=== PATIENT | male | born 1960 | race African-American/Black ===

== ENCOUNTER 2016-07-30 04:41 | Emergency (ER) | payer SELFPAY ==
--- NOTE | 2016-07-30 05:34 | ED ---
I, Prosper,Chantelle, scribed for Alan Banegas MD on 07/30/16 at 0508 . Shortness of Breath - HPI Summary HPI Summary: This 56 y/o male presents to ED alongside EMS and law enforcement after being arrested [employer]. Chief complaint is ydt-ncon-did SOB. Pt states that his symptoms may be due to his anxiety. PMHx includes SC x2 and HTN. Pt is currently daily smoker. Plan of care involving CXR is discussed with pt, and he is agreeable at this moment. - History of Current Complaint Hx Obtained From: Patient, EMS Onset/Duration: Lasting Days - 2 days, Still Present Dyspnea At: Rest Aggrevating Factors: Nothing Alleviating Factors: Nothing Associated Signs & Symptoms: Negative - Allergy/Home Medications Allergies/Adverse Reactions: Allergies Allergy/AdvReac Type Severity Reaction Status Date / Time No Known Allergies Allergy Verified 07/30/16 04:52 PMH/Surg Hx/FS Hx/Imm Hx Cardiovascular History: Reports: Hx Hypertension, Hx Myocardial Infarction - Immunization History Date of Tetanus Vaccine: unk Date of Influenza Vaccine: none Infectious Disease History: No Infectious Disease History: Denies: Traveled Outside the [place] in Last 30 Days - Family History Known Family History: Positive: Diabetes Negative: Cardiac Disease, Hypertension - Social History Alcohol Use: None Hx Substance Use: No Substance Use Type: Reports: Heroin Smoking Status (MU): Current Every Day Smoker Review of Systems Negative: Fever Positive: Shortness Of Breath All Other Systems Reviewed And Are Negative: Yes Physical Exam Triage Information Reviewed: Yes Vital Signs On Initial Exam: Initial Vitals Temp Pulse Resp BP Pulse Ox 98.5 F 78 18 139/83 94 07/30/16 04:48 07/30/16 04:48 07/30/16 04:48 07/30/16 04:48 07/30/16 04:48 Vital Signs Reviewed: Yes Appearance: Positive: Well-Appearing, No Pain Distress Skin: Positive: Warm Head/Face: Positive: Normal Head/Face Inspection Eyes: Positive: VAUGHN ENT: Positive: Hearing grossly normal Neck: Positive: Supple Respiratory/Lung Sounds: Positive: Clear to Auscultation, Breath Sounds Present Cardiovascular: Positive: RRR Abdomen Description: Positive: Nontender, Soft Musculoskeletal: Positive: Strength/ROM Intact Neurological: Positive: Normal Gait Diagnostics - Vital Signs Vital Signs Temp Pulse Resp BP Pulse Ox 07/30/16 04:48 98.5 F 78 18 139/83 94 - Laboratory Lab Statement: Any lab studies that have been ordered have been reviewed, and results considered in the medical decision making process. - Radiology CXR Xray Interpretation: No Acute Changes Radiology Interpretation Completed By: ED Physician Re-Evaluation - Re-Evaluation First Eval Re-Evaluation Time: 05:35 Change: Improved Course/Dx - Diagnoses Provider Diagnoses: Shortness of breath Discharge - Discharge Plan Condition: Stable Disposition: LAW ENFORCEMENT/COURT Patient Education Materials: Dyspnea (ED) Referrals: Non Staff,Doctor [Primary Care Provider] - 2 Days [facility] REFERRAL [Outside] - 2 Days The documentation as recorded by the Prosper philip Soohyun accurately reflects the service I personally performed and the decisions made by me, Alan Baneags MD.
[2016-07-30 05:43] VITALS: BP 139/82
--- NOTE | 2016-07-30 07:41 | RAD ---
INDICATION: Short of breath COMPARISON: None TECHNIQUE: PA and lateral dual-energy views were obtained. FINDINGS: Bones/Soft Tissues: There are no acute bony findings. Cardiomediastinal: The correct silhouette is mildly prominent as are the central pulmonary vessels and interstitium compatible with mild vascular congestion. Lungs: There are no infiltrates. Pleura: No significant effusions. Small amount of fluid in the minor fissure.. Other: None IMPRESSION: INTERSTITIAL CONGESTION. SUGGEST FOLLOW-UP.
== END 2016-07-30 05:45 ==
LOC: ED 04:41
DX: R06.02 Shortness of breath (principal); F17.210 Nicotine dependence, cigarettes, uncomplicated
CPT/HCPCS: 71020; 99282

== ENCOUNTER 2018-05-15 11:49 | Inpatient (IN) | payer MEDICAID ==
--- NOTE | 2018-05-15 12:20 | ED ---
HPI Chest Pain - HPI Summary HPI Summary: A 58 y/o male presents to [facility] with a chief complaint of chest pain since the night of 05/14/18. He also c/o intermittent hiccups, since 22:00 05/14/18. He rates his pain as an 8/10 in severity. He reports taking ibuprofen, but it has not alleviated his pain. Deep breaths aggravate his pain. He describes his chest pain as burning and claims that it is mid-sternal. He reports some tingling in his arms. He also reports some nausea and shortness of breath but denies fever, chills, erythema (eyes), sore throat, cough, abdominal pain, vomiting, dysuria, hematuria, myalgia, edema, rash and dizziness. He has a Hx of cardiac disease and had two stents [place] in the city. He admits to smoking but denies drinking. He reports being thirsty and was given ice water. Vital signs while in room HR: 104 bpm, O2 Sat: 94, BP: 117/85. - History of Current Complaint Chief Complaint: EDChestPainROMI Time Seen by Provider: 05/15/18 12:01 Hx Obtained From: Patient Onset/Duration: Started Hours Ago, Still Present Timing: Constant, Lasting Hours Initial Severity: Severe Current Severity: Severe Pain Intensity: 8 Pain Scale Used: 0-10 Numeric Chest Pain Location: Mid Sternal Chest Pain Radiates: Yes Chest Pain Radiates To:: Arm - tinglinh in arms Character: Burning Aggravating Factor(s): Deep Breaths Alleviating Factor(s): Nothing Associated Signs and Symptoms: Positive: Shortness of Breath, Nausea. Negative : Dizziness, Fever, Chills, Cough, Abdominal Pain, Calf Pain/Swelling, Vomiting - Allergy/Home Medications Allergies/Adverse Reactions: Allergies Allergy/AdvReac Type Severity Reaction Status Date / Time No Known Allergies Allergy Verified 05/15/18 11:56 Home Medications: Home Medications NK [No Home Medications Reported] 05/15/18 [History Confirmed 05/15/18] PMH/Surg Hx/FS Hx/Imm Hx Cardiovascular History: Reports: Hx Hypertension, Hx Myocardial Infarction EENT History: Denies: Hx Deafness - Surgical History Surgery Procedure, Year, and Place: two stents - Immunization History Date of Tetanus Vaccine: unk Date of Influenza Vaccine: none Infectious Disease History: No Infectious Disease History: Denies: Traveled Outside the [place] in Last 30 Days - Family History Known Family History: Positive: Diabetes Negative: Cardiac Disease, Hypertension - Social History Alcohol Use: None Hx Substance Use: No Substance Use Type: Reports: Heroin Smoking Status (MU): Current Every Day Smoker Review of Systems Negative: Fever, Chills Negative: Erythema Negative: Sore Throat Positive: Chest Pain Positive: Shortness Of Breath. Negative: Cough Positive: Nausea, Other - positive: hiccups. Negative: Abdominal Pain, Vomiting Negative: dysuria, hematuria Negative: Myalgia, Edema Negative: Rash Neurological: Negative - dizziness All Other Systems Reviewed And Are Negative: Yes Physical Exam - Summary Physical Exam Summary: Constitutional: Well-developed, Well-nourished, Alert. (-) Distressed Skin: Warm, Dry HENT: Normocephalic; Atraumatic Eyes: Conjunctiva normal Neck: Musculoskeletal ROM normal neck. (-) JVD, (-) Stridor, (-) Tracheal deviation Cardio: Rhythm regular, rate normal, Heart sounds normal; Intact distal pulses; The pedal pulses are 2+ and symmetric. Radial pulses are 2+ and symmetric. (-) Murmur Pulmonary/Chest wall: No reproducible chest pain, Effort normal. (-) Respiratory distress, (-) Wheezes, (-) Rales Abd: Soft, (-) tenderness, (-) Distension, (-) Guarding, (-) Rebound Musculoskeletal: (-) Edema Lymph: (-) Cervical adenopathy Neuro: Alert, Oriented x3 Psych: Mood and affect Normal Triage Information Reviewed: Yes Vital Signs On Initial Exam: Initial Vitals Temp Pulse Resp BP Pulse Ox 98.1 F 108 16 138/77 97 05/15/18 11:53 05/15/18 11:53 05/15/18 11:53 05/15/18 11:53 05/15/18 11:53 Vital Signs Reviewed: Yes Diagnostics - Vital Signs Vital Signs Temp Pulse Resp BP Pulse Ox 05/15/18 12:04 110 20 118/75 96 05/15/18 12:01 18 05/15/18 11:53 98.1 F 108 16 138/77 97 - Laboratory Result Diagrams: 05/15/18 16:02 05/15/18 16:02 Lab Statement: Any lab studies that have been ordered have been reviewed, and results considered in the medical decision making process. - Radiology CXR Radiology Interpretation Completed By: Radiologist Summary of Radiographic Findings: NO ACTIVE CARDIOPULMONARY DISEASE IS NOTED. CARDIOMEGALY IS NOTED. ED physician has reviewed this imaging report. - EKG 12:04 Cardiac Rate: Tachycardia - 105 bpm EKG Rhythm: Sinus Tachycardia Summary of EKG Findings: EKG at 12:04 showed sinus tachycardia at 105 bpm with T -wave inversion V3-V5, no STEMI. Chest Pain Course/Dx - Course Course Of Treatment: A 58 y/o male presents to [facility] with a chief complaint of chest pain since the night of 05/14/18. He also c/o intermittent hiccups, since 22:00 05/14/18. He rates his pain as an 8/10 in severity. He reports taking ibuprofen, but it has not alleviated his pain. Deep breaths aggravate his pain. He describes his chest pain as burning and claims that it is mid-sternal. He reports some tingling in his arms. He also reports some nausea and shortness of breath but denies fever, chills, erythema (eyes), sore throat, cough, abdominal pain, vomiting, dysuria, hematuria, myalgia, edema, rash and dizziness. He has a Hx of cardiac disease and had two stents [place] the city. He admits to smoking but denies drinking. He reports being thirsty and was given ice water. The physical exam revealed no reproducible chest pain. EKG at 12:04 showed sinus tachycardia at 105 bpm with T-wave inversion V3-V5, no STEMI. CXR impression: NO ACTIVE CARDIOPULMONARY DISEASE IS NOTED. CARDIOMEGALY IS NOTED. ED physician has reviewed this imaging report. In the ED course the patient was given 324 mg Aspirin PO and 0.4 mg Nitroglycerin SL. Bloodwork and chemistries obtained. Troponin of 0.04 at 12:13. He was given NTG ointment and was feeling better. Case discussed with Dr. Warren, hospitalist, who accepted the patient for admission. The patient is agreeable with this plan. - Diagnoses Provider Diagnoses: Chest pain, unspecified, Elevated troponin - Provider Notifications Discussed Care Of Patient With: Santino Warren Time Discussed With Above Provider: 13:45 Instructed by Provider To: Admit As Inpatient Discharge - Sign-Out/Discharge Documenting (check all that apply): Patient Departure - admit Patient Received Moderate/Deep Sedation with Procedure: No - Discharge Plan Condition: Fair Disposition: ADMITTED TO [facility] - Billing Disposition and Condition Condition: FAIR Disposition: Admitted to [facility] - Attestation Statements Document Initiated by Scribe: Yes Documenting Scribe: Mauricio Dominguez Provider For Whom Scribe is Documenting (Include Credential): Ezra Khan MD Scribe Attestation: Mauricio Teague, scribed for Ezra Khan MD on 05/15/18 at 2229. Scribe Documentation Reviewed: Yes Provider Attestation: The documentation as recorded by the Mauricio philip accurately reflects the service I personally performed and the decisions made by Ezra tucker MD Status of Scribe Document: Viewed
[2018-05-15 12:27] LABS: ABS Basophils 0.2 10^3/ul (0-0.2); ABS Eosinophils 0 10^3/ul (0-0.6); ABS Lymphocytes 1.9 10^3/ul (1.0-4.8); ABS Monocytes 1.2 10^3/ul (0-0.8); ABS Neutrophils 8.9 10^3/ul (1.5-7.7); ABS Nucleated RBC 0 10^3/ul; Eosinophil % 0.4 %; Hematocrit 42 % (42-52); Hemoglobin 13.9 g/dl (14.0-18.0); Lymphocyte % 15.7 %; Mean Corpuscular HGB Conc 33 g/dl (31-36); Mean Corpuscular Hemoglobin 30 pg (27-31); Mean Corpuscular Volume 91 fL (80-94); Mean Platelet Volume 8.1 fL (7.4-10.4); Nucleated Red Blood Cells % 0; Platelet Count 264 10^3/ul (150-450); Red Blood Count 4.59 10^6/ul (4.00-5.40); Red Cell Distribution Width 15 % (10.5-15); White Blood Count 12.2 10^3/ul (3.5-10.8)
[2018-05-15] MEDS ORDERED: Aspirin 81 mg CHEW TAB* 81 MG TAB.CHEW PO ONE (12:54)
[2018-05-15] MEDS ORDERED: Nitroglycerin TAB 0.4 MG* 0.4 MG TAB SL ONE (12:54)
[2018-05-15 12:57] LABS: ALT 23 U/L (7-52); AST 26 U/L (13-39); Albumin 4.4 g/dL (3.2-5.2); Albumin/Globulin Ratio 1.4 (1-3); Alkaline Phosphatase 113 U/L (34-104); Anion Gap 9 mmol/L (2-11); BUN/Creatinine Ratio 12.4 (8-20); Blood Urea Nitrogen 25 mg/dL (6-24); CO2 Carbon Dioxide 24 mmol/L (22-32); Calcium 9.3 mg/dL (8.6-10.3); Chloride 110 mmol/L (101-111); EGFR African American 41.5 (>60); EGFR Non-African American 34.3 (>60); Globulin 3.1 g/dL (2-4); Glucose 108 mg/dL (70-100); Potassium 3.8 mmol/L (3.5-5.0); Sodium 143 mmol/L (135-145); Total Protein 7.5 g/dL (6.4-8.9)
[2018-05-15 13:01] LABS: Troponin I 0.04 ng/mL (<0.04)
[2018-05-15] MEDS ORDERED: Nitro 2% OINT* (Nitroglycerin) 1 INCH/PAK PAK ONE (13:31)
[2018-05-15] MEDS ORDERED: Nitro 2% OINT* (Nitroglycerin) 1 INCH/PAK PAK TOPICAL ONE (13:32)
[2018-05-15] MEDS ORDERED: Morphine NEONATE IV* 0.5 MG/ML 2 ML INJ STA (14:28)
[2018-05-15] MEDS ORDERED: NS 0.9% 500 ML* 500 ML IV ONE (14:28)
[2018-05-15] MEDS ORDERED: Morphine VIAL* 4 MG/ML VIAL (1 ml vial) IV ONE (14:33)
[2018-05-15] MEDS ORDERED: Clopidogrel TAB* 300 MG PO ONE (14:41)
[2018-05-15] MEDS ORDERED: Heparin DRIP 25,000 UNITS(*) 25,000 UNITS/500 ML BAG IV SCH (14:45)
[2018-05-15 14:59] LABS: Troponin I 0.04 ng/mL (<0.04)
[2018-05-15] MEDS ORDERED: NS 0.9% 1000 ML** 1,000 ML IV SCH (15:00)
[2018-05-15] MEDS: Heparin VIAL(*) 5000 UNITS/ML VIAL (FIVE THOUSAND) IV SCH ×2 (15:23→21:57)
[2018-05-15] MEDS: Nitroglycerin 0.2 MG/HR PATCH* (5 MG) TRANSDERM SCH (16:03)
--- NOTE | 2018-05-15 16:04 | ECHO ---
Patient: RAYNE DOWNING [facility] Rec#: [id number] : 1960 Date: 05/15/2018 Age: 58y Height: 170 cm / 66.9 in Weight: 109 kg / 240.2 lbs Sex: M BSA: 2.18 Room#: [facility] Admit Date#: 05/15/2018 Type: Inpatient Referring: Santino Warren Reading: Brock Davies MD Advertising Agent: Chayo Ferreira RDCS Transthoracic Echocardiogram Indication: Myocardial Infarction BP: 115/66 HR: 85 Rhythm: NSR Findings History: CAD, s/p PCI, smoker. Technical Comments: The study quality is fair. Completed at 1540. Left Ventricle: The left ventricular chamber size is normal. Mild to moderate concentric left ventricular hypertrophy is observed. There is global hypokinesis of the left ventricle with minor regional variation.The lateral and posterlateral segments are best preserved. The inferior and mid septal segments are most severely hypokinetic. There is moderately decreased left ventricular systolic function. The estimated ejection fraction is 35-40%. Abnormal left ventricular diastolic function is observed. The left ventricular diastolic filling pattern is consistent with pseudonormalization. The basal anterolateral, basal inferior, basal inferoseptal, mid anteroseptal, mid inferolateral, mid inferior, and apical inferior wall segments are hypokinetic (score 2). The basal inferolateral, and mid inferoseptal wall segments are akinetic (score 3). Overall wallmotion score index is 1.69 Left Atrium: The left atrium is mildly dilated. Right Ventricle: The right ventricle is mildly dilated. The right ventricular global systolic function is moderately reduced. Right Atrium: The right atrial cavity size is normal. Aortic Valve: The aortic valve is trileaflet. The aortic valve leaflets are mildly thickened. There is no evidence of aortic regurgitation. There is no evidence of aortic stenosis. Mitral Valve: There is mitral annular calcification. The mitral valve leaflets are mildly thickened. There is a trace of mitral regurgitation. There is no evidence of mitral stenosis. Tricuspid Valve: The tricuspid valve leaflets are normal. There is trace tricuspid regurgitation. Unable to estimate the right ventricular systolic pressure. There is no tricuspid stenosis. Pulmonic Valve: The pulmonic valve appears normal. There is a trace pulmonic regurgitation. There is no pulmonic stenosis. Pericardium: There is no significant pericardial effusion. A pericardial fat pad is visualized. Aorta: There is no dilatation of the ascending aorta. There is no dilatation of the aortic arch. The aortic root is normal in size. Pulmonary Artery: The main pulmonary artery is not well visualized. Venous: The inferior vena cava appears normal in size. There is a greater than 50% respiratory change in the inferior vena cava dimension. Summary: There was not any prior study for comparison. Conclusions There is global hypokinesis of the left ventricle with minor regional variation. The lateral and posterlateral segments are best preserved. The inferior and mid septal segments are most severely hypokinetic. There is moderately decreased left ventricular systolic function. The estimated ejection fraction is 35-40%, closer to 35%. The left ventricular diastolic filling pattern is consistent with pseudonormalization. The left atrium is mildly dilated. The right ventricle is mildly dilated. The right ventricular global systolic function is moderately reduced. The aortic valve leaflets are mildly thickened. There is a trace of mitral regurgitation. There is trace tricuspid regurgitation. Measurements Name Value Normal Range RVIDd (AP) 2D 3.3 cm (0.9 - 2.6) RVDdMajor (2D) 4.5 cm (2.2 - 4.4) RAd ISD 4CH 4.4 cm (3.4 - 4.9) RA (A4C)W 4.4 cm (2.9 - 4.6) IVSd (2D) 1.3 cm (0.6 - 1) LVPWd (2D) 1.3 cm (0.6 - 1) LVIDd (2D) 5 cm (3.6 - 5.4) LVIDs (2D) 4.6 cm - LV FS (2D) 7 % (25 - 45) Aortic Annulus 1.9 cm (1.4 - 2.6) Ao root diameter (2D) 3.1 cm (2.1 - 3.5) Ascending Ao 3 cm (2.1 - 3.4) Aortic arch 2.1 cm (1.8 - 3.4) LA dimension (AP) 2D 4.1 cm (2.3 - 3.8) LAd ISD 4CH 4.9 cm (2.9 - 5.3) LA ISD 4CH W 4.7 cm (2.5 - 4.5) Name Value Normal Range LA ESV BP (A/L) index 33 ml/m2 - Name Value Normal Range MV E-wave Vmax 0.6 m/sec - MV deceleration time 317 msec - MV A-wave Vmax 1 m/sec - MV E:A ratio 0.6 ratio - LV septal e' Vmax 0.04 m/sec - LV lateral e' Vmax 0.05 m/sec - LV E:e' septal ratio 15 ratio - LV E:e' lateral ratio 12 ratio - Name Value Normal Range AV Vmax 1.6 m/sec - AV VTI 23 cm - AV peak gradient 10 mmHg - AV mean gradient 5 mmHg - LVOT Vmax 1 m/sec - LVOT VTI 15 cm - LVOT peak gradient 4 mmHg - LVOT mean gradient 2 mmHg - CRISTOBAL Vmax 1.1 m/sec - Name Value Normal Range IVC diameter 1.9 cm - Name Value Normal Range PV Vmax 0.8 m/sec - PV peak gradient 3 mmHg - Wallmotion BAS Normal BA Normal BAL Hypokinetic JERRY Akinetic BI Hypokinetic BIS Hypokinetic MAS Hypokinetic MA Normal MAL Normal MIL Hypokinetic OK Hypokinetic MIS Akinetic Normal AA Normal AL Normal AI Hypokinetic APEX Normal
[2018-05-15 16:09] LABS: Creatine Kinase 608 U/L (10-223)
[2018-05-15 16:12] LABS: ABS Basophils 0.1 10^3/ul (0-0.2); ABS Eosinophils 0.1 10^3/ul (0-0.6); ABS Lymphocytes 2.2 10^3/ul (1.0-4.8); ABS Monocytes 1.1 10^3/ul (0-0.8); ABS Neutrophils 9.6 10^3/ul (1.5-7.7); ABS Nucleated RBC 0 10^3/ul; Eosinophil % 0.6 %; Hematocrit 41 % (42-52); Hemoglobin 13.4 g/dl (14.0-18.0); Lymphocyte % 16.7 %; Mean Corpuscular HGB Conc 33 g/dl (31-36); Mean Corpuscular Hemoglobin 30 pg (27-31); Mean Corpuscular Volume 92 fL (80-94); Mean Platelet Volume 8.2 fL (7.4-10.4); Nucleated Red Blood Cells % 0.1; Platelet Count 255 10^3/ul (150-450); Red Blood Count 4.43 10^6/ul (4.00-5.40); Red Cell Distribution Width 15 % (10.5-15)
[2018-05-15 16:14] LABS: CKMB ng/mL 8.5 ng/mL (0.6-6.3)
[2018-05-15 16:24] LABS: EGFR African American 41.3 (>60); EGFR Non-African American 34.1 (>60)
--- NOTE | 2018-05-15 16:28 | HP ---
ADMITTING HISTORY AND PHYSICAL: DATE OF ADMISSION: 05/15/18 CHIEF COMPLAINT: Chest pain. HISTORY OF PRESENT ILLNESS: The patient is a 58-year-old gentleman who presents to [facility] for chest pain. The patient mentioned that he has been having some chest pain since the night prior and also had been complaining of some intermittent hiccups since 10 o'clock last night. He rated the pain as 8/10 in severity on presentation in the ED and reported that he was taking ibuprofen and it has not relieved this pain. He mentions to the ED physician that deep breaths aggravate his pain, but on my review of systems with him, he clearly denied any aggravating or alleviating symptoms. He described his chest pain as burning in quality and that it was midsternal and mentioned that some of the pain may have radiated in the upper arms. He also reported some nausea and some shortness of breath along with his chest pain, but denied any fevers, chills. PAST MEDICAL AND SURGICAL HISTORY: CAD, status post NC, hypertension, status post ventral hernia repair. 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 ibuprofen he took for chest pain that he presented with today. ALLERGIES: NKDA. FAMILY HISTORY: He mentions that this is unremarkable and "nothing runs in his family." SOCIAL HISTORY: He mentions that he is a one-half pack per day smoker for the last 3 years, but had been smoking about 1.5 to 2 packs per day for the previous 40 years prior to decreasing it to current smoking history. He denies any history of IV drug use or alcohol abuse. REVIEW OF SYSTEMS: As described above. Denied any fevers, chills, vomiting, abdominal pain, diarrhea, constipation, pain and/or increased urinary frequency on urination, myalgias, arthralgias, throat pain, or new skin lesions. The rest of the 14-point review of systems other than chest pain, shortness of breath, and eructation are otherwise normal. PHYSICAL EXAMINATION GENERAL APPEARANCE: The patient is awake. The patient is clearly uncomfortable , lying down in his gurney. VITAL SIGNS: Show the most recent vital signs of records with blood pressure of 115/66, 107 per minute heart rate, 16 per minute respiratory rate, saturating at 94% on room air. HEENT: Normocephalic, atraumatic. PERRLA. Extraocular muscles intact. Negative for icterus. Moist oral mucosa. Negative throat erythema. NECK: Soft, supple with no cervical lymphadenopathy, no JVD. CHEST: Clear to auscultation bilaterally. Good air entry. No wheezes, rales, or rhonchi. There are no tender areas of his chest on palpation. HEART: S1, S2 within normal limits. Slightly tachycardic. No murmurs, rubs, or gallops. ABDOMEN: Soft, nondistended, nontender. Normoactive bowel sounds x4 quadrants. EXTREMITIES: No cyanosis, clubbing, or edema. PSYCHIATRIC: No active psychosis, depression, suicidal or homicidal ideation. SKIN: Warm to touch. DIAGNOSTIC STUDIES/LAB DATA: Most recent and pertinent laboratories drawn reveal CBC with a WBC of 12.2, H and H of 13.9 and 42, platelets of 264. Sodium and potassium of 143 and 3.8, BUN and creatinine of 25/2.1, GFR of 41.5. Troponin is 0.04. LFTs are otherwise unremarkable except for mildly elevated alkaline phosphatase at 113. Lactic acid of 1.4. EKG: The initial EKG did not show any ST segment changes; however, a repeat EKG shows a minor, probably around 0.05 mm depression in the inferior leads with no reciprocal changes in the septal leads. However, it does not meet a 1 mm criteria just yet. ASSESSMENT AND PLAN: The patient is a 58-year-old gentleman with a history of noncompliance; hypertension; coronary artery disease, status post myocardial infarction with stents; noncompliant with medications including aspirin, who presents today with chest pain likely secondary to non-ST- elevation myocardial infarction. 1. Chest pain, likely secondary to [id number] elevation myocardial infarction with minimal elevation of troponins; however, he does have a high JOSE score and has been off of his Plavix and supposedly with stents and therefore the patient could have an in-stent thrombosis or a possible new site of coronary artery disease. At this point, his JOSE score is 4 and still was currently in chest pain a few minutes back and had been given a dose of morphine. I placed him on a nitro patch, heparin drip. I have loaded him up with Plavix in addition to aspirin and we will place him on telemetry and continue to trend troponins as ordered. MB fraction has also been ordered and is awaiting. I have also had a brief discussion with Dr. Davies, who agrees with the above assessment and plan. We will also obtain 2D echo. We will defer with any further suggestions from Dr. Davies. 2. History of coronary artery disease, status post myocardial infarction. I will place him on aspirin and Plavix as discussed above. We will hold off on placing him on any beta-catina at this time given his mild hypotension that is otherwise fluid responsive. We will await results of 2D echo. 3. Acute kidney injury, likely secondary to acute tubular necrosis due to possible [id number] myocardial infarction. We will order urine lytes to calculate for FENa and FEUrea and we will order renal ultrasound to rule out causes postrenal renal failure. 4. Elevated troponins. Please see above discussion. 5. Elevated white count/leukocytosis, likely due to stress/chest pain and likely reactive. 6. DVT prophylaxis: The patient will be placed on full-dose anticoagulation and heparin drip. 7. Disposition: As above. [id number]/[facility] #: [id number] [facility]
[2018-05-15] MEDS: Carvedilol TAB* 3.125 MG PO SCH (17:57)
[2018-05-15] MEDS ORDERED: Atorvastatin* 40 MG TAB PO SCH (18:00)
[2018-05-15 19:14] LABS: Creatine Kinase 532 U/L (10-223)
[2018-05-15 19:18] LABS: CKMB ng/mL 6.7 ng/mL (0.6-6.3)
[2018-05-15 19:23] LABS: Troponin I 0.04 ng/mL (<0.04)
[2018-05-15] MEDS: Nitro Patch/OINT Remove PATCH OFF SCH (20:15)
[2018-05-15] MEDS: Morphine VIAL* 4 MG/ML VIAL (1 ml vial) IV PRN (22:20)
--- NOTE | 2018-05-15 22:24 | CONS ---
CC: Brock Davies MD CARDIOLOGY CONSULTATION REPORT: DATE OF CONSULT: 05/15/18 CONSULTING PHYSICIAN: Dr. Rakesh Warren. REASON FOR EVALUATION: Chest pain, coronary artery disease. HISTORY OF PRESENT ILLNESS: Mr. Khan is a 58-year-old gentleman with a history of coronary artery disease, presented with chest pain. He said that starting yesterday he developed chest pain that was somewhat of a pressure. He felt like something was stuck in his throat. He said it started about 10 a.m. and he said also it was coming by hiccups and that it was worse with each hiccup. He said that today it was persisting, and because of the symptoms, he came to the emergency room. In the emergency room, he was noted to have an abnormal EKG and abnormal troponin, and he was admitted for observation. He did receive some nitroglycerin earlier today with improvement; however, he said that he had a sandwich about an hour ago and had worsening of his symptoms for a while with a feeling like the sandwich was stuck in his throat. He has a history of 2 MIs in the past, most recent of which was in 2014. He said the first UT was treated at the [facility] and he received a stent. The second UT was treated at [facility] "near the [facility]," but he could not identify the name of the hospital despite being given a list of hospitals in [place]. He said he received the stent at that time. He was also told to have a low ejection fraction, but apparently did not follow up with care. He was in retirement from 2017 to 2018. He states he has had back pain and has been taking Motrin 800 mg 3 times a day for his pain. 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 He said the back hurts after he has walked for a while, but he did not give me a sense of how much exercise he does. PAST MEDICAL HISTORY: Includes UT x2, the most recent in 2014; stenting x2; hypertension; ventral hernia repair. MEDICATIONS: He is not sure of his medications, but states he thinks he ran out and took lisinopril in the past up until a day ago. He does take ibuprofen 800 mg 3 times a day. He does not take aspirin. ALLERGIES: He has no known allergies. FAMILY HISTORY: He said his father from alcohol abuse. His mother had coronary artery bypass grafting at 70, is now 79. He is single, has no children. He has a brother who has cancer. SOCIAL HISTORY: He denies alcohol use. He is single, never , no children. There is a history of tobacco use, half a pack per day. He smoked for 40 years, but had been smoking as much as 2 packs a day until he cut back to half a pack a day in last few years. He reports obesity and has had an increase in his weight of approximately 50 pounds over the last year from 200 to 250. He denies sleep apnea. He is not aware of renal insufficiency. REVIEW OF SYSTEMS: Review of systems x10 was negative except as above. PHYSICAL EXAM: He is a well-developed, obese gentleman, in no apparent distress. Blood pressure 107/78, heart rate of 110, temperature 99.1, O2 sats 94 % on room air. His eyes were with some degree of exophthalmos. Extraocular muscles are intact. Sclerae anicteric. Atraumatic, normocephalic. No significant JVD. Carotids 2+ without bruits. Cardiac Exam: S1 and S2 with no clear murmurs, gallops, or rubs. Chest was clear. Abdominal Exam: Bowel sounds present, distended, nontender, obese, difficult to exam for hepatosplenomegaly. Femoral pulses intact without bruits. Distal pulses intact. No edema. Motor strength 5/5 bilaterally. Deep tendon reflexes 2/4. Alert and oriented x3. DIAGNOSTIC STUDIES/LAB DATA: EKG revealed sinus rhythm, sinus tach of 105 with Q waves inferiorly and lateral ST-T changes, consider ischemia. Repeat EKG is pending. Chest x-ray by report revealed cardiomegaly, no acute changes. His echocardiogram from today revealed [id number] LVH, global hypokinesis of the LV with minor regional variation, lateral and posterolateral segments are best preserved, inferior and mid septal segments of severely hypokinetic, moderately decreased LV function, EF of 35% to 40%, abnormal diastolic pattern consistent with grade 2 diastolic dysfunction. The basal inferolateral, mid inferoseptal segments are akinetic. Left atrium is mildly dilated. RV systolic pressure is moderately reduced. Aortic leaflets are thickened trace and mild trace TR. IMPRESSION: My impression is that Mr. Khan has a history of coronary artery disease, appears to have ischemic cardiomyopathy and now has chest pain which is somewhat atypical, associated with hiccups. He also has trouble swallowing. He has renal insufficiency which may be chronic due to hypertensive kidney disease or exacerbated by his heavy Motrin, nonsteroidal antiinflammatory use. His EKG and echo do support the diagnosis of ischemic cardiomyopathy and he may have an exacerbation. His troponins are mildly elevated, but this in the setting of renal insufficiency and may be demand ischemia type 2 rather than acute infarct. PLAN/RECOMMENDATIONS: For the time being, I recommended the followin. I suggested adding nitrates, which seem to have helped. 2. I would add low-dose beta-catina for his LV dysfunction and angina, Coreg 3.125 mg b.i.d. 3. I would continue dual antiplatelet therapy as you are doing. 4. I would add Lipitor 40 mg a day. 5. I strongly advised him to discontinue tobacco use, which he declined. 6. I would consider a GI workup for his swallowing difficulties perhaps a swallowing study. 7. Given his unexplained weight gain and swallowing difficulties, I would consider possibility of occult structural lesion which may responsible for his chest symptoms and swallowing difficulties. 8. I would repeat his EKG. 9. I told him the importance of compliance for his heart condition, which could be life threatening and the need for compliance with his medications and followup. 10. I would consider evaluation for ischemia with a nuclear stress test or cath if he has progressive symptoms and EKG changes support diagnosis of acute coronary syndrome. Tobacco discontinuation and weight reduction are advised. He was advised to refrain from nonsteroidal antiinflammatory use which could increase his risk for cardiovascular morbidity and mortality, hypertension, and renal insufficiency. We will try to locate his records from [facility] and from an as yet unnamed hospital in [place]; I have reviewed with him the names of several hospitals and he is not sure he is going to try to figure out the name. [id number]/[facility] #: [id number] MEAGAN
[2018-05-16 01:37] LABS: Troponin I 0.03 ng/mL (<0.04)
[2018-05-16 01:39] LABS: CKMB ng/mL 6.6 ng/mL (0.6-6.3)
[2018-05-16] MEDS: Morphine VIAL* 4 MG/ML VIAL (1 ml vial) IV PRN ×2 (05:02→20:00)
[2018-05-16 05:08] LABS: ABS Basophils 0.1 10^3/ul (0-0.2); ABS Eosinophils 0.1 10^3/ul (0-0.6); ABS Lymphocytes 3.1 10^3/ul (1.0-4.8); ABS Monocytes 1.3 10^3/ul (0-0.8); ABS Neutrophils 7.4 10^3/ul (1.5-7.7); ABS Nucleated RBC 0 10^3/ul; Hematocrit 38 % (42-52); Hemoglobin 12.4 g/dl (14.0-18.0); Lymphocyte % 25.8 %; Mean Corpuscular HGB Conc 33 g/dl (31-36); Mean Corpuscular Hemoglobin 30 pg (27-31); Mean Corpuscular Volume 91 fL (80-94); Mean Platelet Volume 7.9 fL (7.4-10.4); Nucleated Red Blood Cells % 0; Platelet Count 235 10^3/ul (150-450); Red Blood Count 4.13 10^6/ul (4.00-5.40); Red Cell Distribution Width 15 % (10.5-15); White Blood Count 12.1 10^3/ul (3.5-10.8)
[2018-05-16 05:25] LABS: Albumin 3.8 g/dL (3.2-5.2); Albumin/Globulin Ratio 1.4 (1-3); BUN/Creatinine Ratio 16.9 (8-20); Calcium 8.7 mg/dL (8.6-10.3); EGFR African American 65.1 (>60); EGFR Non-African American 53.8 (>60); Globulin 2.7 g/dL (2-4); HDL Cholesterol 32.8 mg/dL; Magnesium 1.9 mg/dL (1.9-2.7); Phosphorus 2.1 mg/dL (2.5-5.0); Potassium 3.7 mmol/L (3.5-5.0); Total Bilirubin 0.6 mg/dL (0.2-1.0); Total Protein 6.5 g/dL (6.4-8.9)
[2018-05-16 06:02] LABS: TSH (Thyroid Stimulating Horm) 0.5 mcIU/mL (0.34-5.60)
[2018-05-16] MEDS: Nitroglycerin 0.2 MG/HR PATCH* (5 MG) TRANSDERM SCH (08:02)
[2018-05-16] MEDS: Carvedilol TAB* 3.125 MG PO SCH (08:03)
[2018-05-16] MEDS: Aspirin 81 mg CHEW TAB* 81 MG TAB.CHEW PO SCH (08:03)
[2018-05-16] MEDS ORDERED: Clopidogrel TAB* 75 MG PO SCH (09:00)
[2018-05-16] MEDS: Heparin VIAL(*) 5000 UNITS/ML VIAL (FIVE THOUSAND) IV SCH (11:16)
[2018-05-16] MEDS ORDERED: Al Hydrox/Mg Hydrox/Simet LIQ* 30 ML UDC PO PRN (14:17)
--- NOTE | 2018-05-16 14:23 | PN ---
Subjective Date of Service: 05/16/18 Interval History: Patient continues to have substernal chest pain. This has been present for hours. Has known CAD, stents in past. He feels he was told that after 1 year, no medications for CAD were needed. Pain in chest worse w/ hiccoughs, worse when swallowing food. Denies h/o GERD. Family History: Unchanged from Admission Social History: Unchanged from Admission Past Medical History: Unchanged from Admission Objective Active Medications: Al Hydrox/Mg Hydrox/Simethicone (Maalox Plus*) 30 ml PO Q6H PRN PRN Reason: HEARTBURN Aspirin (Aspirin 81 Mg Chew Tab*) 81 mg PO DAILY [facility] Last Admin: 05/16/18 08:03 Dose: 81 mg Atorvastatin Calcium (Lipitor*) 10 mg PO 1700 [facility] Carvedilol (Coreg Tab*) 6.25 mg PO BID [facility] Morphine Sulfate (Morphine Vial*) 1 mg IV Q6H PRN PRN Reason: PAIN Last Admin: 05/16/18 05:02 Dose: 1 mg Nitroglycerin (Nitroglycerin 5 Mg Patch*) 1 patch TRANSDERM DAILY@0900 [facility] Last Admin: 05/16/18 08:02 Dose: 1 patch Pantoprazole Sodium (Protonix Tab*) 40 mg PO DAILY [facility] Pharmacy Profile Note (Nitro Patch/Oint Remove*) 1 note PATCH OFF 2100 [facility] Last Admin: 05/15/18 20:15 Dose: 1 patch Vital Signs - 8 hr 05/16/18 05/16/18 05/16/18 07:42 07:57 08:00 Temperature 37.1 C Pulse Rate 84 Respiratory 16 17 16 Rate Blood Pressure 119/61 (mmHg) O2 Sat by Pulse 92 Oximetry 05/16/18 12:30 Temperature 37.1 C Pulse Rate 86 Respiratory 14 Rate Blood Pressure 123/54 (mmHg) O2 Sat by Pulse 96 Oximetry Oxygen Devices in Use Now: None Appearance: alert, no distress Eyes: No Scleral Icterus Ears/Nose/Mouth/Throat: Clear Oropharnyx Neck: No Thyroid Enlargement, Masses Respiratory: Symmetrical Chest Expansion and Respiratory Effort, Clear to Auscultation Cardiovascular: NL Sounds; No Murmurs; No JVD, RRR Abdominal: NL Sounds; No Tenderness; No Distention Lymphatic: No Cervical Adenopathy Neurological: Alert and Oriented x 3 Lines/Tubes/Other Access: Clean, Dry and Intact Peripheral IV Result Diagrams: 05/16/18 04:51 05/16/18 05:00 Additional Lab and Data: Laboratory Tests 05/15/18 05/16/18 05/16/18 18:45 00:55 05:00 Hemoglobin A1c Phosphorus 2.1 L Total Creatine Kinase 532 H 507 H Troponin I 0.04 H* 0.03 Cholesterol 137 TSH 0.50 05/16/18 05:00 Hemoglobin A1c 5.9 H Phosphorus Total Creatine Kinase Troponin I Cholesterol TSH Diagnostic Imaging: esophagram: suggestion of distal esophagitis, no achalasia, no obstruction Assess/Plan/Problems-Billing Assessment: 58 yo man with know CAD, h/o stent to circumflex, not currently on medications, admitted w/ chest pain. - Patient Problems (1) Esophagitis Current Visit: Yes Status: Acute Priority: High Code(s): K20.9 - ESOPHAGITIS, UNSPECIFIED SNOMED Code(s): 14510666 Comment: -suspect chest pain is esophageal in nature -appreciate findings on barium swallow -will start mylanta and PO protonix -Will need outpatient EGD (2) Angina concurrent with and due to arteriosclerosis of coronary artery Current Visit: Yes Status: Acute Priority: High Code(s): I25.119 - ATHSCL HEART DISEASE OF [place] COR ART W UNSP ANG PCTRS SNOMED Code(s): 91153344746561833 Comment: -Troponins have been minimally elevated, no NSTEMI/ACS appears present -Has been restarted on ASA, statin, beta-catina, nitrates to prevent angina in future -stress test planned Friday, could be completed as outpatient. (3) DVT prophylaxis Current Visit: Yes Status: Acute Priority: Low Code(s): [id number] - SNOMED Code(s): 208766592 Comment: -heparin drip stopped -Will start SCDs Status and Disposition: inpatient, possible discharge tomorrow
[2018-05-16] MEDS: Pantoprazole TAB * 40 MG TAB PO SCH (16:34)
[2018-05-16] MEDS ORDERED: Atorvastatin* 10 MG TAB PO SCH (17:00)
[2018-05-16] MEDS: Carvedilol TAB* 6.25 MG PO SCH (21:17)
[2018-05-16] MEDS: Nitro Patch/OINT Remove PATCH OFF SCH (21:17)
[2018-05-17 07:35] LABS: Albumin 3.6 g/dL (3.2-5.2); Albumin/Globulin Ratio 1.3 (1-3); BUN/Creatinine Ratio 13.8 (8-20); Calcium 8.7 mg/dL (8.6-10.3); EGFR African American 73.1 (>60); EGFR Non-African American 60.4 (>60); Globulin 2.7 g/dL (2-4); Potassium 3.6 mmol/L (3.5-5.0); Total Bilirubin 0.6 mg/dL (0.2-1.0); Total Protein 6.3 g/dL (6.4-8.9)
[2018-05-17 07:37] LABS: Troponin I 0.02 ng/mL (<0.04)
[2018-05-17] MEDS: Aspirin 81 mg CHEW TAB* 81 MG TAB.CHEW PO SCH (08:51)
[2018-05-17] MEDS: Pantoprazole TAB * 40 MG TAB PO SCH (08:51)
[2018-05-17] MEDS: Nitroglycerin 0.2 MG/HR PATCH* (5 MG) TRANSDERM SCH (08:51)
[2018-05-17] MEDS: Carvedilol TAB* 6.25 MG PO SCH (08:51)
[2018-05-17 12:01] VITALS: BP 124/55
--- NOTE | 2018-05-17 23:24 | DS ---
CC: Dr. Schmitz, [facility]; Dr. Davies * DISCHARGE SUMMARY: DATE OF ADMISSION: 05/15/18 DATE OF DISCHARGE: 05/17/18 PRIMARY DIAGNOSIS: Chest pain due to esophagitis. SECONDARY DIAGNOSES: 1. Coronary artery disease, history of stenting. 2. Tobacco abuse. 3. Obesity. 4. Hypertension. MEDICATIONS ON DISCHARGE: 1. Protonix 40 mg p.o. q. day. 2. Mylanta 30 mL p.o. q.6h. p.r.n. dyspepsia. 3. Aspirin 81 mg p.o. q. day. 4. Atorvastatin 10 mg p.o. q.h.s. 5. Carvedilol 6.25 mg p.o. b.i.d. 6. Nitroglycerin patch 0.2 mcg per hour topically in the a.m., off in the p.m. HOSPITAL COURSE: The patient was admitted to the emergency department with substernal chest pain that had begun the night prior to admission and was unrelenting, radiating to both arms, associated with some nausea. There were no ST elevations on the EKG, but initial troponin was 0.04, so there was a suspicion of non-ST elevation MN. The patient was treated appropriately with IV heparin, aspirin, beta blockade, cardiology consultation. The pain, however on further questioning the next day, was continuous and worsened by swallowing water or food and associated with a feeling of food catching in the throat. The troponins were repeated and came down to 0.03 and 0.02. EKG showed some varying degrees of T-wave inversion throughout, but no Q-waves, no ST elevations. Dr. Davies, Cardiology consulted on the day of admission and his suspicion for a fatal cardiac disease was low. He suspected esophageal issues mainly. He has documented history of MN x2 and stent on 2 occasions, most recently at [facility] in [facility]. The patient had stopped all his medications in the interim and so he was re-started on aspirin, nitrates, beta blockers, anticholesterol agents, and advised to quit smoking. Dr. Davies was raising outpatient stress test for the patient on the first day or two after discharge. The patient also had an esophagogram during the hospital stay. This did show some irregularities at the mid to distal thoracic esophagus consistent with esophagitis. The patient was started on Protonix and Mylanta, but did not have much relief from that. The patient was medically stable for discharge. Vital signs were stable and his chest pain had gone on for more than 48 hours without remitting and without ordering troponins. The patient was advised to be discharged and have follow up with the [facility] to establish primary care. The patient also should see Cardiology for stress test the next 48 hours. He was also advised to have a gastroenterology consult arranged to further investigate the esophagitis. This could be arranged through the outpatient clinic. ACTIVITY: Should be as tolerated. DIET: Should be low salt, low fat. TIME SPENT: I spent 40 minutes coordinating care with specialists and discharging this patient today. [id number]/[facility] #: [id number] MEAGAN
[2018-05-19 16:33] LABS: Creatine Kinase 309 U/L (39 - 308)
== END 2018-05-17 14:25 | disposition home or self-care (01) | DRG 243 ==
LOC: ED 11:49 → MEDTELE 14:40
PROVIDERS: ADMIT Student in an Organized Health Care Education/Training Program; ATTEND Internal Medicine
DX: K20.9 Esophagitis, unspecified (principal); N17.0 Acute kidney failure with tubular necrosis; Z68.41 Body mass index [BMI] 40.0-44.9, adult; R07.89 Other chest pain; I25.10 Atherosclerotic heart disease of native coronary artery without angina pectoris; I11.9 Hypertensive heart disease without heart failure; E66.9 Obesity, unspecified; F17.210 Nicotine dependence, cigarettes, uncomplicated; R74.8 Abnormal levels of other serum enzymes; I25.5 Ischemic cardiomyopathy; Z81.1 Family history of alcohol abuse and dependence; I25.2 Old myocardial infarction; Z95.5 Presence of coronary angioplasty implant and graft; Z82.49 Family history of ischemic heart disease and other diseases of the circulatory system; Z80.9 Family history of malignant neoplasm, unspecified
CPT/HCPCS: 36415; 71045; 74220; 80053; 80061; 82550; 82553; 82565; 83036; 83605; 83735; 84100; 84443; 84484; 84520; 85025; 85660; 85730; 93005; 93306; 94762; 96374; 96375; 99284; A9270-GY; J1644; J2270

== ENCOUNTER → 2018-08-14 08:37 | Day surgery (SDC) | payer OTHER ==
[2018-08-14 09:35] VITALS: BP 138/70
[2018-08-14 10:14] LABS: Hematocrit 38 % (42-52); Hemoglobin 12.5 g/dL (14.0-18.0); Mean Corpuscular HGB Conc 33 g/dL (31-36); Mean Corpuscular Hemoglobin 30 pg (27-31); Mean Corpuscular Volume 91 fL (80-94); Mean Platelet Volume 9.1 fL (7.4-10.4); Platelet Count 194 10^3/uL (150-450); Red Blood Count 4.19 10^6 /uL (4.18-5.48); Red Cell Distribution Width 14 % (10-15); White Blood Count 11.9 10^3/uL (3.5-10.8)
--- NOTE | 2018-08-14 10:14 | PN ---
Subjective Date of Service: 08/14/18 - c/o sinus congestion, low grade fever, cough here for elective LHC Interval History: Patient presents for elective LHC to r/o hybernating myocardium. Apparently since Friday he has been suffering from sinus congestion, funny nose, cough with white sputum and SOB. He has not taken temperature at home but denies rigors. No c/o chest pain, dizziness, syncope or palpitations. dental laboratory manager staff states temp 100.4 and room air SP02 87-90%. Patient lying in bed upon entering room Objective Vital Signs: Temp Pulse Resp BP Pulse Ox 100.4 F 96 16 138/70 88 08/14/18 09:30 08/14/18 09:00 08/14/18 09:03 08/14/18 08:57 08/14/18 09:00 Oxygen Devices in Use Now: Nasal Cannula Appearance: well nourished, in NAD A+O x3 cooperative with exam Ears/Nose/Mouth/Throat: NL Teeth, Lips, Gums, Mucous Membranes Moist Neck: NL Appearance and Movements; NL JVP, Trachea Midline, No Thyroid Enlargement, Masses Respiratory: - - + inspiratory rales and wheezes noted in bilateral bases R>L, respirations are non labored. Harsh cough noted Cardiovascular: NL Sounds; No Murmurs; No JVD, No Edema Extremities: No Edema Skin: No Rash or Ulcers Neurological: Alert and Oriented x 3 Lines/Tubes/Other Access: Clean, Dry and Intact Peripheral IV Laboratory Results: CBC pending Diagnostic Imaging: CXR pending EKG Data: pending Assessment/Plan #1 5 day h/o Sinus congestion with cough and SOB. Temp 100.4, SP02 on RA 87-90% patient has a h/o tobacco abuse. Respirations are non labored on exam. He is lying in bed in supine position with HOB at 30 degrees and is comforable. + harsh cough with inspiratory rales in bilateral bases. Will re schedule elective LHC. Update CXR, CBC and EKG. 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 He denies chest pain, dizziness or syncope. #2 h/o CAD with fixed defect. Denies chest pain. Will need to reschedule elective LHC once URI treated given low grade fever. #3 h/o SHF; he c/o sob and has rales in bases likely due to above #1. CXR to be updated. Will continue medications. #4 h/o CKD. Creat 1.3 08/06/2018 reflective of baseline. #5 Disposition pending course. D/W Dr. Ellison who agrees to re schedule elective LHC. Obtaining CXR and CBC. disposition is pending course. Attending: Karly Ellison
[2018-08-14 12:23] LABS: ABS Basophils 0.1 10^3/ul (0-0.2); ABS Eosinophils 0.2 10^3/ul (0-0.6); ABS Monocytes 1.7 10^3/ul (0-0.8); Eosinophil % 1.8 %; Lymphocyte % 16.6 %
== END | disposition home or self-care (01) ==
LOC: CHICATH 08:37
PROVIDERS: ATTEND Internal Medicine Cardiovascular Disease
DX: I25.10 Atherosclerotic heart disease of native coronary artery without angina pectoris (principal); R05 Cough; R09.81 Nasal congestion; R50.9 Fever, unspecified; R06.02 Shortness of breath; N18.9 Chronic kidney disease, unspecified; Z53.09 Procedure and treatment not carried out because of other contraindication
CPT/HCPCS: 36415; 71046; 85025; 93005

== ENCOUNTER 2018-08-17 17:40 | Inpatient (IN) | payer OTHER ==
--- NOTE | 2018-08-17 18:37 | ED ---
Respiratory - HPI Summary HPI Summary: This pt is a 58 y/o male presenting to [facility] c/o SOB and cough. Pt reports he went to his PCP's office today (Dr. Avila) and was diagnosed with pneumonia. His PCP noticed pt had a decreased oxygen saturation of 87% on room air. Pt describes a productive cough with white sputum. Denies fever, chest pain, nausea , vomiting. PMHx includes COPD. Pt does not wear oxygen at home. - History of Current Complaint Chief Complaint: EDShortnessOfBreath Stated Complaint: CANT BREATHE, PNEUMONIA PER PT Hx Obtained From: Patient Onset/Duration: Lasting Days, Still Present Current Severity: Moderate Character: Cough (Productive), Dyspnea at Rest Sputum Color: White Aggravating Factor(s): Nothing Alleviating Factor(s): Nothing Associated Signs and Symptoms: SOB, Dyspnea - Allergy/Home Medications Allergies/Adverse Reactions: Allergies Allergy/AdvReac Type Severity Reaction Status Date / Time No Known Allergies Allergy Verified 05/15/18 11:56 PMH/Surg Hx/FS Hx/Imm Hx Endocrine/Hematology History: Denies: Hx Diabetes Cardiovascular History: Reports: Hx Angina, Hx Coronary Artery Disease, Hx Hypertension, Hx Myocardial Infarction Respiratory History: Reports: Hx Chronic Obstructive Pulmonary Disease (COPD) Denies: Hx Asthma History: Denies: Hx Chronic Renal Failure Sensory History: Reports: Hx Contacts or Glasses Denies: Hx Deafness, Hx Hearing Aid Opthamlomology History: Reports: Hx Contacts or Glasses - Surgical History Surgery Procedure, Year, and Place: two stents - Immunization History Date of Tetanus Vaccine: unk Date of Influenza Vaccine: none Infectious Disease History: No Infectious Disease History: Denies: Traveled Outside the [place] in Last 30 Days - Family History Known Family History: Positive: Diabetes Negative: Cardiac Disease, Hypertension - Social History Alcohol Use: None Hx Substance Use: No Substance Use Type: Reports: Heroin Smoking Status (MU): Current Every Day Smoker Type: Cigarettes Review of Systems Negative: Fever Negative: Chest Pain Positive: Shortness Of Breath, Cough Negative: Vomiting, Nausea All Other Systems Reviewed And Are Negative: Yes Physical Exam - Summary Physical Exam Summary: VITAL SIGNS: Reviewed. GENERAL: Patient is a well-developed and nourished male who is lying comfortable in the stretcher. Patient is not in any acute respiratory distress. HEAD AND FACE: Normocephalic EYES: PERRLA, EOMI x 2. EARS: Hearing grossly intact. MOUTH: Oropharynx within normal limits. NECK: Supple, trachea is midline, no adenopathy, no JVD, no carotid bruit. CHEST: Symmetric, no tenderness at palpation LUNGS: Clear to auscultation bilaterally. No wheezing or crackles. CVS: Regular rate and rhythm, S1 and S2 present, no murmurs or gallops appreciated. ABDOMEN: Soft, non-tender. Bowel sounds are normal. No abdominal abnormal pulsations. EXTREMITIES: Full ROM in all major joints, no edema, no cyanosis or clubbing. NEURO: Alert and oriented x 3. No acute neurological deficits. Speech is normal and follows commands. SKIN: Dry and warm Triage Information Reviewed: Yes Vital Signs On Initial Exam: Initial Vitals Temp Pulse Resp BP Pulse Ox 97.8 F 83 26 170/90 91 08/17/18 17:51 08/17/18 17:51 08/17/18 17:51 08/17/18 17:51 08/17/18 17:51 Vital Signs Reviewed: Yes Diagnostics - Vital Signs Vital Signs Temp Pulse Resp BP Pulse Ox 08/17/18 17:51 97.8 F 83 26 170/90 91 - Laboratory Result Diagrams: 08/18/18 05:48 08/18/18 05:48 Lab Statement: Any lab studies that have been ordered have been reviewed, and results considered in the medical decision making process. - Radiology Chest XR Radiology Interpretation Completed By: ED Physician Summary of Radiographic Findings: Right middle lobe pneumonia. - EKG 18:03 Cardiac Rate: NL - at 77 bpm EKG Rhythm: Sinus Rhythm Summary of EKG Findings: No STEMI. Disposition - Course Assessment/Plan: This pt is a 58 y/o male presenting to [facility] c/o SOB and cough. Pt reports he went to his PCP's office today (Dr. Avila) and was diagnosed with pneumonia. His PCP noticed pt had a decreased oxygen saturation. He describes a productive cough with white sputum. Denies fever, chest pain, nausea, vomiting. PMHx includes COPD. Pt does not wear oxygen at home. Past medical history significant for CAD, angina, tobacco abuse. Blood test results without any significant abnormality except for hemoglobin 13.3, hematocrit 40, potassium 2.9 for which the patient was given potassium chloride, creatinine 1.27, glucose 145, CRP of 131 and BMP 220. Chest x-ray impression: Bilateral pneumonia. In the ED course the patient was given Rocephin, DuoNebs. I discussed my physical exam, findings and test results with Dr. Goetz from the hospitalist services and she agrees to admit patient to her services. Patient is hemodynamically stable, alert and oriented x 3. - Diagnoses Provider Diagnoses: Pneumonia, COPD exacerbation - Physician Notifications Discussed Care Of Patient With: Sushma Goetz - hospitalist Time Discussed With Above Provider: 20:08 Instructed by Provider To: Admit As Inpatient Discharge - Sign-Out/Discharge Documenting (check all that apply): Patient Departure [place] [facility] [place] Received Moderate/Deep Sedation with Procedure: No - Discharge Plan Condition: Stable Disposition: ADMITTED TO [facility] - Billing Disposition and Condition Condition: STABLE Disposition: Admitted to [facility] - Attestation Statements Document Initiated by Scribe: Yes Documenting Scribe: Rosa Maria Varma Provider For Whom Scribe is Documenting (Include Credential): Maximino Oconnell MD Scribe Attestation: IRosa Maria, scribed for aMximino Oconnell MD on 08/18/18 at 1030. Scribe Documentation Reviewed: Yes Provider Attestation: The documentation as recorded by the Rosa Maria philip accurately reflects the service I personally performed and the decisions made by me, Maximino Oconnell MD Status of Scribe Document: Viewed
[2018-08-17] MEDS ORDERED: Albuterol/Ipratropium NEB.SOL* Albuterol 2.5 MG/Ipratropium 0.5 MG 3 ML INH ONE (18:38)
[2018-08-17 19:09] LABS: ABS Basophils 0.1 10^3/ul (0-0.2); ABS Eosinophils 0.2 10^3/ul (0-0.6); ABS Lymphocytes 2.4 10^3/ul (1.0-4.8); ABS Monocytes 0.6 10^3/ul (0-0.8); ABS Neutrophils 6.3 10^3/ul (1.5-7.7); Eosinophil % 1.9 %; Hematocrit 40 % (42-52); Hemoglobin 13.3 g/dL (14.0-18.0); Lymphocyte % 25.3 %; Mean Corpuscular HGB Conc 34 g/dL (31-36); Mean Corpuscular Hemoglobin 31 pg (27-31); Mean Corpuscular Volume 92 fL (80-94); Mean Platelet Volume 8.4 fL (7.4-10.4); Platelet Count 397 10^3/uL (150-450); Red Blood Count 4.33 10^6 /uL (4.18-5.48); Red Cell Distribution Width 14 % (10-15); White Blood Count 9.6 10^3/uL (3.5-10.8)
[2018-08-17 19:19] LABS: Albumin 3.4 g/dL (3.2-5.2); Albumin/Globulin Ratio 0.9 (1-3); BUN/Creatinine Ratio 9.4 (8-20); C Reactive Protein 131.9 mg/L (<8.01); Calcium 8.8 mg/dL (8.6-10.3); EGFR African American 70.5 (>60); EGFR Non-African American 58.2 (>60); Globulin 3.7 g/dL (2-4); Potassium 2.9 mmol/L (3.5-5.0); Total Bilirubin 0.4 mg/dL (0.2-1.0); Total Protein 7.1 g/dL (6.4-8.9)
[2018-08-17 19:21] LABS: Troponin I 0.02 ng/mL (<0.04)
[2018-08-17 19:23] LABS: CKMB ng/mL 2.6 ng/mL (0.6-6.3)
[2018-08-17] MEDS ORDERED: cefTRIAXone(*) 1 GM in NS 0.9% 50 ML* 50 ML IVPB ONE (19:46)
[2018-08-17] MEDS ORDERED: KCL 10 MEQ/50 ML IVPREMIX* 10 MEQ/50 ML BAG IV ONE (20:01)
[2018-08-17] MEDS ORDERED: Potassium Chlor TAB* 20 MEQ TAB.ER PO ONE (20:01)
[2018-08-17] MEDS ORDERED: predniSONE TAB* 20 MG PO ONE (20:53)
[2018-08-17] MEDS ORDERED: Al Hydrox/Mg Hydrox/Simet LIQ* 30 ML UDC PO PRN ×2 (20:55→21:00)
[2018-08-17] MEDS ORDERED: Morphine INJ* 2 MG/ML 1 ML SYRINGE (TWO MG - NEW SYRINGE VERSION) IV PRN (20:55)
[2018-08-17] MEDS ORDERED: Acetaminophen TAB* 325 MG PO PRN (20:55)
[2018-08-17] MEDS ORDERED: Ondansetron INJ* 2 MG/ML VIAL IV PRN (20:55)
[2018-08-17] MEDS ORDERED: Albuterol/Ipratropium NEB.SOL* Albuterol 2.5 MG/Ipratropium 0.5 MG 3 ML INH PRN (20:58)
[2018-08-17] MEDS ORDERED: Albuterol 2.5 MG/3 ML NEB.SOL* (0.083%) INH PRN (20:58)
[2018-08-17] MEDS ORDERED: Albuterol HFA INHALER* 8 gm MDI INH PRN (21:08)
--- NOTE | 2018-08-17 22:08 | HP ---
CONTINUATION ADDENDUM NOW INCLUDED ON THIS REPORT CC: Dr. Avila; Dr. Davies * HISTORY AND PHYSICAL: DATE OF ADMISSION: 08/17/18 TIME OF EVALUATION: 2100 PRIMARY CARE PHYSICIAN: Dr. Avila. GROUND EQUIPMENT MECHANIC: Dr. Davies. CHIEF COMPLAINT: Shortness of breath. HISTORY OF PRESENT ILLNESS: This is a 58-year-old male with a past medical history of coronary artery disease, status post PCI, who presents to the emergency room from his primary care office today for low oxygen sats. The patient states he has had cough, congestion, and shortness of breath that has gotten progressively worse over the past week starting on 08/09/18. He went in for an elective cath procedure on 08/14/[address] Ellison. At that time, he is noted to have vitals, temperature of 100.4, sats ranging around 87 to 90%. They rescheduled his cath and got him in to see his primary care physician in office. At that time, he was started on Z- Eduardo. He thought he was feeling somewhat better and today he was seen for a followup and he noted his sats were still low and they were concerned about his respiratory status and sent him to the emergency room for further evaluation. The patient states he has had a productive cough, shortness of breath, pleuritic chest pain. Nothing seems to improve or worsen his chest pain; it waxes and wanes. He was having nausea, vomiting, diarrhea, but that has improved. He has had little p.o. He denies ever using inhalers in the past. Never been diagnosed with COPD. He has been cutting back on smoking, he is down to 4 cigarettes per day. He states he has gained about 50 pounds over the past year. He denies any recent lower extremity swelling. He states he had a CAT scan about a month ago that was unremarkable. Denies any urinary symptoms. No abdominal pain. Otherwise, review of systems is negative. In the emergency room, the patient had labs, imaging. He was given a DuoNeb, 1 g of ceftriaxone, potassium chloride 40 mEq and referred to the hospitalist service for further evaluation. PAST MEDICAL HISTORY: 1. History of coronary artery disease, status post stent in 2014. 2. Hyperlipidemia. 3. Tobacco use. 4. Erectile dysfunction. 5. History of esophagitis. 6. CKD. MEDICATIONS: Per med rec: 1. Pantoprazole 40 mg p.o. daily. 2. Nitro patch transdermally daily. 3. Lisinopril 2.5 mg p.o. b.i.d. 4. Lasix 20 mg daily. 5. Coreg 18.75 mg p.o. b.i.d. 6. Lipitor 10 mg p.o. daily. 7. Aspirin 81 mg daily. 8. Maalox 30 mL q.6 hours as needed. ALLERGIES: No known drug allergies. SOCIAL HISTORY: The patient lives at home with his who is his healthcare proxy. He works in [employer]. As mentioned, he is down to 4 cigarettes per day. At most, he smoked half a pack per day. He has been smoking for 40 years. No alcohol use. No illicit drug use. Code status is full code. FAMILY HISTORY: Father with alcoholism. Mother with coronary artery disease. Brother with bone cancer. REVIEW OF SYSTEMS: A 14-point review of systems as mentioned in the HPI, otherwise negative. PHYSICAL EXAMINATION GENERAL: No acute distress, resting comfortably with his at the bedside. VITAL SIGNS: T-max is 99.3, pulse rate is 83, respiratory rate is 19, oxygen saturation is 92% on 2 L, blood pressure 159/69. HEENT: Head: Normocephalic. Pupils are equal and reactive, anicteric. Oropharynx: Mucous membranes are moist. Mild posterior erythema. NECK: Supple. No nuchal rigidity. No adenopathy. RESPIRATORY: Diminished breath sounds. Bilateral expiratory wheeze with faint rhonchi bilaterally. No increased work of breathing. No tachypnea. CARDIAC: Regular rate and rhythm. Soft systolic murmur heard throughout. ABDOMEN: Soft, nontender, nondistended. EXTREMITIES: Trace pretibial edema. NEUROLOGIC: Alert and oriented x3. No gross focal neurologic deficits. LABORATORY DATA: White count 9.6, hemoglobin 13.3, hematocrit 40, platelets 397. Blood gas, ABG; 7.47, pCO2 of 36, pO2 of 63. Sodium 141, potassium 2.9, chloride 104, bicarb 29, BUN 12, creatinine 1.27, glucose 145. Mag is 2. Troponin 0.02. CRP is 131. BNP is 220. Lactic acid 1.4. CONTINUATION ADDENDUM: Review of radiographic data: Chest x-ray showing bilateral patchy pneumonia on wet read. EKG shows normal sinus rhythm, nonspecific ST changes. ASSESSMENT: This is a 58-year-old male with past medical history of coronary artery disease, tobacco use, who presents to the emergency room with a week of cough, congestion, and low O2 sats. 1. Cough, congestion, and hypoxia: Assessment: The patient's history and physical are consistent with bilateral patchy community-acquired pneumonia in the setting of tobacco use as well. I suspect he has underlying reactive airway disease, possibly chronic obstructive pulmonary disease with his longstanding smoking history, though he has never used inhalers or has been diagnosed in the past. He did have, of note, a CAT scan on 07/23 for lung screening test that was negative for nodule or mass. Plan: We will continue him on the ceftriaxone. He has one more day of the azithromycin, which we will continue as well. I am going to put him on prednisone 40 mg daily as there is some evidence that it improves morbidity and mortality with community-acquired pneumonia, especially in the setting of tobacco use. We will continue him on nebulized albuterol treatment and inhaler , and respiratory teaching to help with inhaler use, as I suspect he will need to be discharged home with inhalers and possibly nebulizers. We will check a sputum culture, Legionella and pneumococcal antigen. We will continue to trend his troponin. Follow up on the blood culture, repeat his labs in the morning. 2. Chronic medical problems: We will resume his home medications as prescribed. We will hold the Lasix for now in the setting of acute infectious illness and no signs of volume overload. We will hold off on continuing any fluids though. 3. FEN: Place the patient on regular diet. 4. DVT prophylaxis: The patient scores high risk. We will place him on heparin subcu t.i.d. 5. Code status: Full code. PATIENT TIME: Greater than 40 minutes were spent doing the history and physical , more than half of that time was in direct patient contact. [id number]/[facility] #: [id number]/[facility]PS #: [id number] MEAGAN
--- NOTE | 2018-08-17 22:16 | HP ---
HISTORY AND PHYSICAL: ADDENDUM: Review of radiographic data: Chest x-ray showing bilateral patchy pneumonia on wet read. EKG shows normal sinus rhythm, nonspecific ST changes. ASSESSMENT: This is a 58-year-old male with past medical history of coronary artery disease, tobacco use, who presents to the emergency room with a week of cough, congestion, and low O2 sats. 1. Cough, congestion, and hypoxia: Assessment: The patient's history and physical are consistent with bilateral patchy community-acquired pneumonia in the setting of tobacco use as well. I suspect he has underlying reactive airway disease, possibly chronic obstructive pulmonary disease with his longstanding smoking history, though he has never used inhalers or has been diagnosed in the past. He did have, of note, a CAT scan on 07/23 for lung screening test that was negative for nodule or mass. Plan: We will continue him on the ceftriaxone. He has one more day of the azithromycin, which we will continue as well. I am going to put him on prednisone 40 mg daily as there is some evidence that it improves morbidity and mortality with community-acquired pneumonia, especially in the setting of tobacco use. We will continue him on nebulized albuterol treatment and inhaler, and respiratory teaching to help with inhaler use, as I suspect he will need to be discharged home with inhalers and possibly nebulizers. We will check a sputum culture, Legionella and pneumococcal antigen. We will continue to trend his troponin. Follow up on the blood culture, repeat his labs in the morning. 2. Chronic medical problems: We will resume his home medications as prescribed. We will hold the Lasix for now in the setting of acute infectious illness and no signs of volume overload. We will hold off on continuing any fluids though. 3. FEN: Place the patient on regular diet. 4. DVT prophylaxis: The patient scores high risk. We will place him on heparin subcu t.i.d. 5. Code status: Full code. PATIENT TIME: Greater than 40 minutes were spent doing the history and physical , more than half of that time was in direct patient contact. [id number]/[facility] #: [id number] MEAGAN
[2018-08-17] MEDS: oxyCODONE/Acetamin 5/325 MG* TAB PO PRN (22:30)
[2018-08-17] MEDS: Nitro Patch/OINT Remove PATCH OFF SCH (22:30)
[2018-08-17] MEDS: Heparin VIAL(*) 5000 UNITS/ML VIAL (FIVE THOUSAND) SUBCUT SCH (22:31)
[2018-08-17 22:49] LABS: Urine Appearance Clear; Urine Bacteria Absent (Absent); Urine Bilirubin Negative (Negative); Urine Blood 1+ (Negative); Urine Color Yellow; Urine Glucose Negative (Negative); Urine Ketones Negative (Negative); Urine Nitrite Negative (Negative); Urine Protein Negative (Negative); Urine Red Blood Cell 2+(6-10/hpf) (Absent); Urine Specific Gravity 1.015 (1.010-1.030); Urine Urobilinogen Negative (Negative); Urine White Blood Cell Trace(0-5/hpf) (Absent)
[2018-08-18 06:10] LABS: ABS Basophils 0.1 10^3/ul (0-0.2); ABS Monocytes 0.1 10^3/ul (0-0.8); ABS Neutrophils 8.9 10^3/ul (1.5-7.7); Hematocrit 40 % (42-52); Hemoglobin 13.1 g/dL (14.0-18.0); Lymphocyte % 9.7 %; Mean Corpuscular HGB Conc 33 g/dL (31-36); Mean Corpuscular Hemoglobin 31 pg (27-31); Mean Corpuscular Volume 92 fL (80-94); Mean Platelet Volume 8.6 fL (7.4-10.4); Platelet Count 378 10^3/uL (150-450); Red Blood Count 4.29 10^6 /uL (4.18-5.48); Red Cell Distribution Width 14 % (10-15); White Blood Count 10.1 10^3/uL (3.5-10.8)
[2018-08-18 06:28] LABS: Calcium 8.9 mg/dL (8.6-10.3)
[2018-08-18 06:33] LABS: BUN/Creatinine Ratio 11.8 (8-20); EGFR Non-African American 62.8 (>60)
[2018-08-18] MEDS: Heparin VIAL(*) 5000 UNITS/ML VIAL (FIVE THOUSAND) SUBCUT SCH ×3 (06:40→21:21)
[2018-08-18 07:20] LABS: Magnesium 2.2 mg/dL (1.9-2.7); Potassium 4.4 mmol/L (3.5-5.0)
[2018-08-18] MEDS: cefTRIAXone(*) 1 GM in NS 0.9% 50 ML* 50 ML IVPB SCH (09:12)
[2018-08-18] MEDS: Aspirin 81 mg CHEW TAB* 81 MG TAB.CHEW PO SCH (09:12)
[2018-08-18] MEDS: Carvedilol TAB* 6.25 MG PO SCH ×2 (09:12→21:21)
[2018-08-18] MEDS: predniSONE TAB* 20 MG PO SCH (09:13)
[2018-08-18] MEDS: Pantoprazole TAB * 40 MG TAB PO SCH (09:13)
[2018-08-18] MEDS: Lisinopril TAB* 5 MG PO SCH ×2 (09:13→21:21)
[2018-08-18] MEDS: Nitroglycerin 0.2 MG/HR PATCH* (5 MG) TRANSDERM SCH (09:14)
[2018-08-18] MEDS ORDERED: Azithromycin IV(*) 250 MG in NS 0.9% 250 ML* 250 ML IVPB SCH (09:30)
--- NOTE | 2018-08-18 11:18 | PN ---
Subjective Date of Service: 08/18/18 Interval History: Mr. Khan is feeling a bit better today. His SOB has improved, but he continues to have some SOB at rest. Worse when laying down, but he is more comfortable in general when laying down. He has not been up ambulating. Still having dry cough which is keeping him awake. He denies CP, N/V/D, dizziness. No concerns from nursing. Family History: Unchanged from Admission Social History: Unchanged from Admission Past Medical History: Unchanged from Admission Objective Active Medications: Acetaminophen (Tylenol Tab*) 650 mg PO Q4H PRN FEVER/PAIN Al Hydrox/Mg Hydrox/Simethicone (Maalox Plus*) 30 ml PO Q6H PRN INDIGESTION Al Hydrox/Mg Hydrox/Simethicone (Maalox Plus*) 30 ml PO Q6H PRN HEARTBURN Albuterol (Ventolin 2.5 Mg/3 Ml Neb.Casie*) 2.5 mg INH Q2H PRN SOB/WHEEZING Albuterol (Ventolin Hfa Inhaler*) 2 puff INH Q2H PRN SOB/WHEEZING Albuterol/Ipratropium (Duoneb (Albuterol 2.5 Mg/Ipratropium 0.5 Mg)) 1 neb INH Q4H PRN SOB/WHEEZING Aspirin (Aspirin 81 Mg Chew Tab*) 81 mg PO DAILY [facility] Atorvastatin Calcium (Lipitor*) 10 mg PO 1700 [facility] Carvedilol (Coreg Tab*) 18.75 mg PO BID [facility] Heparin Sodium (Porcine) (Heparin Vial(*)) 5,000 units SUBCUT Q8HR [facility] Azithromycin 250 mg/ Sodium (Chloride) 250 mls @ 250 mls/hr IVPB Q24H [facility] Ceftriaxone Sodium 1 gm/ (Sodium Chloride) 50 mls @ 200 mls/hr IVPB Q24H [facility] Lisinopril (Prinivil Tab*) 2.5 mg PO BID [facility] Morphine Sulfate (Morphine Inj (Syringe))*) 2 mg IV Q4H PRN PAIN - MILD Nitroglycerin (Nitroglycerin 5 Mg Patch*) 1 patch TRANSDERM DAILY@0900 [facility] Ondansetron HCl (Zofran Inj*) 4 mg IV Q4H PRN NAUSEA/VOMITING Oxycodone/Acetaminophen (Percocet 5/325 Tab*) 1 tab PO Q4H PRN Pantoprazole Sodium (Protonix Tab*) 40 mg PO DAILY [facility] Pharmacy Profile Note (Nitro Patch/Oint Remove*) 1 note PATCH OFF 2199 [facility] Prednisone (Deltasone Tab*) 40 mg PO DAILY [facility] Vital Signs - 8 hr 08/18/18 08/18/18 03:44 07:35 Temperature 97.7 F 98.2 F Pulse Rate 78 86 Respiratory 20 16 Rate Blood Pressure 148/71 113/86 (mmHg) O2 Sat by Pulse 95 92 Oximetry Appearance: Middle-aged male laying in bed in NAD Eyes: No Scleral Icterus Ears/Nose/Mouth/Throat: Mucous Membranes Moist Neck: NL Appearance and Movements; NL JVP, Trachea Midline Respiratory: Symmetrical Chest Expansion and Respiratory Effort, - - Crackles bilat bases, otherwise diminished Cardiovascular: NL Sounds; No Murmurs; No JVD, RRR Abdominal: NL Sounds; No Tenderness; No Distention Extremities: No Edema Skin: No Rash or Ulcers Neurological: Alert and Oriented x 3 Lines/Tubes/Other Access: Clean, Dry and Intact Peripheral IV Nutrition: Taking PO's Result Diagrams: 08/18/18 05:48 08/18/18 05:48 Assess/Plan/Problems-Billing Assessment: Mr. Khan is a 58 yo M with PMH of CAD with stent placement, HLD, esophagitis, and CKD; who presented to the ED with c/o SOB and was found to by hypoxic secondary to pneumonia. - Patient Problems (1) Community acquired pneumonia Code(s): J18.9 - PNEUMONIA, UNSPECIFIED ORGANISM Comment: - SOB greater than 1 week prior to admission - Requiring 2L on admission, now on RA - CXR concerning for bilat lower lobe pneumonia - Negative Strep pneumo and Legionella urine antigens - Continue azithromycin (day 5/5), ceftriaxone (day 2/7) (2) Ischemic cardiomyopathy Code(s): I25.5 - ISCHEMIC CARDIOMYOPATHY Comment: - No evidence of exacerbation - Last echo on 05/15/18 shows EF 35% - Continue carvedilol, furosemide, lisinopril (3) CAD (coronary artery disease) Code(s): I25.10 - ATHSCL HEART DISEASE OF [place] CORONARY ARTERY W/O ANG PCTRS Comment: - No acute concerns - Continue aspirin, atorvastatin, nitro, carvedilol (4) Hypertension Code(s): I10 - ESSENTIAL (PRIMARY) HYPERTENSION Comment: - Hypertensive overnight, now normotensive - Continue carvedilol, lisinopril, furosemide (5) Tobacco abuse Code(s): Z72.0 - TOBACCO USE Comment: - Encourage cessation (6) History of esophagitis Code(s): Z87.19 - PERSONAL HISTORY OF OTHER DISEASES OF THE DIGESTIVE SYSTEM Comment: -Continue pantoprazole (7) CKD (chronic kidney disease) stage 2, GFR 60-89 ml/min Code(s): N18.2 - CHRONIC KIDNEY DISEASE, STAGE 2 (MILD) Comment: - Creatinine at baseline (8) DVT prophylaxis Comment: - Heparin SQ (9) Full code status Code(s): Z78.9 - OTHER SPECIFIED HEALTH STATUS Comment: Status and Disposition: Observation. Anticipate d/c home when medically stable, hopefully tomorrow. Attending: Kelly Spear
[2018-08-18] MEDS: Nicotine* 4MG (FRUIT FLAVOR) GUM PO PRN ×2 (15:06→21:23)
[2018-08-18] MEDS: Atorvastatin* 10 MG TAB PO SCH (17:20)
[2018-08-18] MEDS: oxyCODONE/Acetamin 5/325 MG* TAB PO PRN (21:20)
[2018-08-18] MEDS: Nitro Patch/OINT Remove PATCH OFF SCH (21:22)
[2018-08-18] MEDS ORDERED: diPHENhydraMINE PO* 25 MG PO PRN (21:48)
[2018-08-18] MEDS: Oxymetazoline 0.05% NASAL SPR* 15 ML BTL BOTH NARES SCH (22:34)
[2018-08-19] MEDS: Heparin VIAL(*) 5000 UNITS/ML VIAL (FIVE THOUSAND) SUBCUT SCH ×3 (05:15→22:07)
[2018-08-19] MEDS: oxyCODONE/Acetamin 5/325 MG* TAB PO PRN ×2 (06:23→20:02)
[2018-08-19] MEDS: Nicotine* 4MG (FRUIT FLAVOR) GUM PO PRN ×3 (06:24→22:08)
[2018-08-19] MEDS: cefTRIAXone(*) 1 GM in NS 0.9% 50 ML* 50 ML IVPB SCH (08:47)
[2018-08-19] MEDS: Nitroglycerin 0.2 MG/HR PATCH* (5 MG) TRANSDERM SCH (08:47)
[2018-08-19] MEDS: predniSONE TAB* 20 MG PO SCH (08:47)
[2018-08-19] MEDS: Lisinopril TAB* 5 MG PO SCH ×2 (08:47→20:01)
[2018-08-19] MEDS: Oxymetazoline 0.05% NASAL SPR* 15 ML BTL BOTH NARES SCH ×2 (08:47→20:02)
[2018-08-19] MEDS: Aspirin 81 mg CHEW TAB* 81 MG TAB.CHEW PO SCH (08:50)
[2018-08-19] MEDS: Pantoprazole TAB * 40 MG TAB PO SCH (08:50)
[2018-08-19] MEDS: Carvedilol TAB* 6.25 MG PO SCH ×2 (08:50→20:01)
[2018-08-19] MEDS ORDERED: Furosemide TAB* 20 MG PO SCH (09:00)
[2018-08-19] MEDS ORDERED: Lisinopril TAB* 5 MG PO ONE (09:27)
--- NOTE | 2018-08-19 12:14 | PN ---
Subjective Date of Service: 08/19/18 Interval History: Mr. Khan is feeling ok today. He is not feeling any better than yesterday. SOB and cough are improved, but he still feels generally poor and is nervous to go home as he feels his symptoms will recur. Denies CP, N/V. Good appetite. No concerns from nursing. Family History: Unchanged from Admission Social History: Unchanged from Admission Past Medical History: Unchanged from Admission Objective Active Medications: Acetaminophen (Tylenol Tab*) 650 mg PO Q4H PRN FEVER/PAIN Al Hydrox/Mg Hydrox/Simethicone (Maalox Plus*) 30 ml PO Q6H PRN HEARTBURN Albuterol (Ventolin 2.5 Mg/3 Ml Neb.Casie*) 2.5 mg INH Q2H PRN SOB/WHEEZING Albuterol (Ventolin Hfa Inhaler*) 2 puff INH Q2H PRN SOB/WHEEZING Albuterol/Ipratropium (Duoneb (Albuterol 2.5 Mg/Ipratropium 0.5 Mg)) 1 neb INH Q4H PRN SOB/WHEEZING Aspirin (Aspirin 81 Mg Chew Tab*) 81 mg PO DAILY [facility] Atorvastatin Calcium (Lipitor*) 10 mg PO 1700 [facility] Carvedilol (Coreg Tab*) 18.75 mg PO BID [facility] Diphenhydramine HCl (Benadryl Po*) 25 mg PO BEDTIME PRN [facility] Heparin Sodium (Porcine) (Heparin Vial(*)) 5,000 units SUBCUT Q8HR [facility] Ceftriaxone Sodium 1 gm/ (Sodium Chloride) 50 mls @ 200 mls/hr IVPB Q24H [facility] Lisinopril (Prinivil Tab*) 2.5 mg PO BID [facility] Morphine Sulfate (Morphine Inj (Syringe))*) 2 mg IV Q4H PRN PAIN - MILD Nicotine Polacrilex (Nicotine Gum*) 4 mg PO Q2H PRN CRAVING Nitroglycerin (Nitroglycerin 5 Mg Patch*) 1 patch TRANSDERM DAILY@0900 [facility] Ondansetron HCl (Zofran Inj*) 4 mg IV Q4H PRN NAUSEA/VOMITING Oxycodone/Acetaminophen (Percocet 5/325 Tab*) 1 tab PO Q4H PRN Pain Oxymetazoline HCl (Afrin 0.05% Nasal [place]*) 2 spray BOTH NARES BID [facility] Pantoprazole Sodium (Protonix Tab*) 40 mg PO DAILY [facility] Prednisone (Deltasone Tab*) 40 mg PO DAILY [facility] Vital Signs - 8 hr 08/19/18 08/19/18 06:23 07:15 Temperature 97.9 F Pulse Rate 79 Respiratory 20 24 Rate Blood Pressure 160/91 (mmHg) O2 Sat by Pulse 95 Oximetry Oxygen Devices in Use Now: None Appearance: Middle-aged male laying in bed in NAD Eyes: No Scleral Icterus Ears/Nose/Mouth/Throat: Mucous Membranes Moist Neck: NL Appearance and Movements; NL JVP, Trachea Midline Respiratory: Symmetrical Chest Expansion and Respiratory Effort, - - Crackles to bilat bases, R>L Cardiovascular: NL Sounds; No Murmurs; No JVD, RRR Abdominal: NL Sounds; No Tenderness; No Distention Extremities: No Edema Skin: No Rash or Ulcers Neurological: Alert and Oriented x 3 Lines/Tubes/Other Access: Clean, Dry and Intact Peripheral IV Nutrition: Taking PO's Result Diagrams: 08/18/18 05:48 08/18/18 05:48 Assess/Plan/Problems-Billing Assessment: Mr. Khan is a 58 yo M with PMH of CAD with stent placement, HLD, esophagitis, and CKD; who presented to the ED with c/o SOB and was found to by hypoxic secondary to pneumonia. - Patient Problems (1) Community acquired pneumonia Code(s): J18.9 - PNEUMONIA, UNSPECIFIED ORGANISM Comment: - SOB greater than 1 week prior to admission - Requiring 2L on admission, now on RA - CXR concerning for bilat lower lobe pneumonia - Suspect there is also an underlying COPD; would benefit from outpatient PFTs for futher evaluation - Sputum culture pending; negative Strep pneumo and Legionella urine antigens - Completed 5 day course of azithromycin (was on this prior to admission) - Continue ceftriaxone (day 3/7) (2) Hypertension Code(s): I10 - ESSENTIAL (PRIMARY) HYPERTENSION Comment: - Hypertensive - Continue carvedilol, furosemide; increase lisinopril (3) Ischemic cardiomyopathy Code(s): I25.5 - ISCHEMIC CARDIOMYOPATHY Comment: - No evidence of exacerbation - Last echo on 05/15/18 shows EF 35% - Continue carvedilol, furosemide, lisinopril (4) CAD (coronary artery disease) Code(s): I25.10 - ATHSCL HEART DISEASE OF [place] CORONARY ARTERY W/O ANG PCTRS Comment: - No acute concerns - Continue aspirin, atorvastatin, nitro, carvedilol (5) Tobacco abuse Code(s): Z72.0 - TOBACCO USE Comment: - Encourage cessation (6) History of esophagitis Code(s): Z87.19 - PERSONAL HISTORY OF OTHER DISEASES OF THE DIGESTIVE SYSTEM Comment: -Continue pantoprazole (7) CKD (chronic kidney disease) stage 2, GFR 60-89 ml/min Code(s): N18.2 - CHRONIC KIDNEY DISEASE, STAGE 2 (MILD) Comment: - Creatinine at baseline (8) DVT prophylaxis Comment: - Heparin SQ (9) Full code status Code(s): Z78.9 - OTHER SPECIFIED HEALTH STATUS Comment: Status and Disposition: Observation. Anticipate d/c home when medically stable, hopefully tomorrow. Attending: Mary Benedict
[2018-08-19] MEDS: Furosemide TAB* 20 MG PO SCH (13:21)
[2018-08-19] MEDS: Atorvastatin* 10 MG TAB PO SCH (18:02)
[2018-08-19] MEDS: Nitro Patch/OINT Remove PATCH OFF SCH (22:10)
[2018-08-20] MEDS: Heparin VIAL(*) 5000 UNITS/ML VIAL (FIVE THOUSAND) SUBCUT SCH ×2 (05:24→13:35)
[2018-08-20] MEDS: cefTRIAXone(*) 1 GM in NS 0.9% 50 ML* 50 ML IVPB SCH (08:54)
[2018-08-20] MEDS ORDERED: Furosemide TAB* 20 MG PO SCH (09:00)
[2018-08-20] MEDS: predniSONE TAB* 20 MG PO SCH (09:03)
[2018-08-20] MEDS: Carvedilol TAB* 6.25 MG PO SCH (09:03)
[2018-08-20] MEDS: Furosemide TAB* 20 MG PO SCH (09:03)
[2018-08-20] MEDS: Aspirin 81 mg CHEW TAB* 81 MG TAB.CHEW PO SCH (09:03)
[2018-08-20] MEDS: Oxymetazoline 0.05% NASAL SPR* 15 ML BTL BOTH NARES SCH (09:03)
[2018-08-20] MEDS: Pantoprazole TAB * 40 MG TAB PO SCH (09:03)
[2018-08-20] MEDS: Lisinopril TAB* 5 MG PO SCH (09:03)
[2018-08-20] MEDS: Nitroglycerin 0.2 MG/HR PATCH* (5 MG) TRANSDERM SCH (09:04)
[2018-08-20] MEDS: Nicotine* 4MG (FRUIT FLAVOR) GUM PO PRN (09:08)
[2018-08-20 11:29] VITALS: BP 152/54
--- NOTE | 2018-08-20 13:03 | DCNOTE ---
Subjective Date of Service: 08/20/18 Interval History: Patient reports he feels well enough to go home. Denies sob, wheezing or sputum production. States "I feel so much better just in general". Denies fever/chills. no N/V/D. Family History: Unchanged from Admission Social History: Unchanged from Admission Past Medical History: Unchanged from Admission Objective Active Medications: Acetaminophen (Tylenol Tab*) 650 mg PO Q4H PRN PRN Reason: FEVER/PAIN Al Hydrox/Mg Hydrox/Simethicone (Maalox Plus*) 30 ml PO Q6H PRN PRN Reason: HEARTBURN Albuterol (Ventolin 2.5 Mg/3 Ml Neb.Casie*) 2.5 mg INH Q2H PRN PRN Reason: SOB/WHEEZING Albuterol (Ventolin Hfa Inhaler*) 2 puff INH Q2H PRN PRN Reason: SOB/WHEEZING Albuterol/Ipratropium (Duoneb (Albuterol 2.5 Mg/Ipratropium 0.5 Mg)) 1 neb INH Q4H PRN PRN Reason: SOB/WHEEZING Aspirin (Aspirin 81 Mg Chew Tab*) 81 mg PO DAILY [facility] Last Admin: 08/20/18 09:03 Dose: 81 mg Atorvastatin Calcium (Lipitor*) 10 mg PO 1700 [facility] Last Admin: 08/19/18 18:02 Dose: 10 mg Carvedilol (Coreg Tab*) 18.75 mg PO BID [facility] Last Admin: 08/20/18 09:03 Dose: 18.75 mg Diphenhydramine HCl (Benadryl Po*) 25 mg PO BEDTIME PRN PRN Reason: SLEEP Last Admin: 08/18/18 22:32 Dose: 25 mg Furosemide (Lasix Tab*) 20 mg PO DAILY [facility] Last Admin: 08/20/18 09:03 Dose: 20 mg Heparin Sodium (Porcine) (Heparin Vial(*)) 5,000 units SUBCUT Q8HR [facility] Last Admin: 08/20/18 05:24 Dose: 5,000 units Ceftriaxone Sodium 1 gm/ (Sodium Chloride) 50 mls @ 200 mls/hr IVPB Q24H [facility] Last Admin: 08/20/18 08:54 Dose: 200 mls/hr Lisinopril (Prinivil Tab*) 5 mg PO BID [facility] Last Admin: 08/20/18 09:03 Dose: 5 mg Morphine Sulfate (Morphine Inj (Syringe))*) 2 mg IV Q4H PRN PRN Reason: PAIN - MILD Nicotine Polacrilex (Nicotine Gum*) 4 mg PO Q2H PRN PRN Reason: CRAVING Last Admin: 08/20/18 09:08 Dose: 4 mg Nitroglycerin (Nitroglycerin 5 Mg Patch*) 1 patch TRANSDERM DAILY@0900 [facility] Last Admin: 08/20/18 09:04 Dose: 1 patch Ondansetron HCl (Zofran Inj*) 4 mg IV Q4H PRN PRN Reason: NAUSEA/VOMITING Oxycodone/Acetaminophen (Percocet 5/325 Tab*) 1 tab PO Q4H PRN PRN Reason: Pain Last Admin: 08/19/18 20:02 Dose: 1 tab Oxymetazoline HCl (Afrin 0.05% Nasal [place]*) 2 spray BOTH NARES BID [facility] Stop: 08/21/18 21:59 Last Admin: 08/20/18 09:03 Dose: 2 spray Pantoprazole Sodium (Protonix Tab*) 40 mg PO DAILY [facility] Last Admin: 08/20/18 09:03 Dose: 40 mg Pharmacy Profile Note (Nitro Patch/Oint Remove*) 1 note PATCH OFF 2200 [facility] Last Admin: 08/19/18 22:10 Dose: 1 patch Prednisone (Deltasone Tab*) 40 mg PO DAILY [facility] Last Admin: 08/20/18 09:03 Dose: 40 mg Vital Signs - 8 hr 08/20/18 08/20/18 08/20/18 07:15 08:00 11:15 Temperature 98.2 F 98.7 F Pulse Rate 83 86 Respiratory 24 24 24 Rate Blood Pressure 144/67 152/54 (mmHg) O2 Sat by Pulse 97 94 Oximetry Oxygen Devices in Use Now: None Appearance: 58 yo male A+O x3 in NAD Eyes: No Scleral Icterus, PERRLA Ears/Nose/Mouth/Throat: Mucous Membranes Moist Respiratory: Symmetrical Chest Expansion and Respiratory Effort, Clear to Auscultation Cardiovascular: NL Sounds; No Murmurs; No JVD, RRR, No Edema Abdominal: NL Sounds; No Tenderness; No Distention Extremities: No Edema, No Clubbing, Cyanosis Skin: No Rash or Ulcers, No Nodules or Sclerosis Neurological: Alert and Oriented x 3, NL Sensation, NL Gait, NL Muscle Strength and Tone Lines/Tubes/Other Access: Clean, Dry and Intact Peripheral IV Nutrition: Taking PO's Result Diagrams: 08/18/18 05:48 08/18/18 05:48 Microbiology and Other Data: Microbiology 08/17/18 22:35 Legionella Urinary Antigen - Final Urine Negative Legionella Antigen Streptococcus pneumoniae Ag Screen - Final Negative S. pneumo Antigen Assess/Plan/Problems-Billing Assessment: Mr. Khan is a 58 yo M with PMH of CAD with stent placement, HLD, esophagitis, and CKD; who presented to the ED with c/o SOB and was found to by hypoxic secondary to pneumonia. - Patient Problems (1) Community acquired pneumonia Comment: - Much Improved. Feels ready to go home - Requiring 2L on admission, now on RA - CXR concerning for bilat lower lobe pneumonia - Suspect there is also an underlying COPD; would benefit from outpatient PFTs for futher evaluation - will refer to Pulm - Sputum culture pending; negative Strep pneumo and Legionella urine antigens - Completed 5 day course of azithromycin (was on this prior to admission) - Continue ceftriaxone (day 4/7) - will send home on ceftin (2) CAD (coronary artery disease) Comment: - No acute concerns - Continue aspirin, atorvastatin, nitro, carvedilol (3) CKD (chronic kidney disease) stage 2, GFR 60-89 ml/min Comment: - Creatinine at baseline (4) History of esophagitis Comment: -Continue pantoprazole (5) Hypertension Comment: - Hypertensive - Continue carvedilol, furosemide; increase lisinopril (6) Ischemic cardiomyopathy Comment: - No evidence of exacerbation - Last echo on 05/15/18 shows EF 35% - Continue carvedilol, furosemide, lisinopril (7) Tobacco abuse Comment: - Encourage cessation (8) Full code status Comment: (9) DVT prophylaxis Comment: - Heparin SQ Status and Disposition: Observation. DC to home today
--- NOTE | 2018-08-20 16:19 | DS ---
CC: Dr. Avila; Dr. Davies * DISCHARGE SUMMARY: DATE OF ADMISSION: 08/18/18 DATE OF DISCHARGE: 08/20/18 PROVIDER: Gordo Chau NP ATTENDING PHYSICIAN: Dr. John * (dictated by Gordo Chau NP). PRIMARY CARE PROVIDER: Dr. Avila. ONE PIECE EXPANSION MAKER HAND: Dr. Davies. DISCHARGE DIAGNOSES: 1. Community-acquired pneumonia. 2. Hypertension. SECONDARY DIAGNOSES: 1. History of coronary artery disease, status post stent in 2014. 2. Hyperlipidemia. 3. Tobacco abuse. 4. Erectile dysfunction. 5. History of esophagitis. 6. Chronic kidney disease. DISCHARGE MEDICATIONS: 1. Protonix 40 mg p.o. daily. 2. Nitroglycerin 0.2 mg/hour patch 1 patch transderm daily. 3. Lasix 20 mg p.o. daily. 4. Coreg 18.75 mg p.o. b.i.d. 5. Lipitor 10 mg p.o. daily. 6. Aspirin 81 mg p.o. daily. 7. Maalox 30 mL p.o. q.6 hours p.r.n. New medications: 1. Prednisone 40 mg p.o. daily x3 days. 2. Ceftin 500 mg p.o. b.i.d. x5 days. 3. Albuterol HFA inhaler 2 puffs INH q.4 hours p.r.n. shortness of breath/ wheezing. Medication changed: 1. Lisinopril 5 mg p.o. b.i.d. (please note this is 2.5 mg p.o. b.i.d. prior to admission). HISTORY OF PRESENT ILLNESS AND HOSPITAL COURSE: Please see Dr. Goetz's history and physical for full admission details, but in summary, this patient was scheduled for an elective cardiac catheterization on 08/14/[address] Ellison, which at that time he was noted to have a low-grade temp as well as found to be hypoxic of 87% to 90%. His cardiac catheterization was rescheduled and the patient went to see his primary care doctor and he was started on a Z-Eduardo. He initially was feeling better. He was seen for a followup and he was noted to still have low oxygenation and concern for respiratory status. He was sent to the emergency department for further evaluation. In the emergency department, the patient was found to have a chest x-ray that showed "persistent bilateral lower lung mixed interstitial and airspace disease. Recommend followup until resolution to exclude underlying pulmonary parenchymal pathology." He was admitted to the hospitalist service for bilateral community-acquired pneumonia. It was suspected he had underlying reactive airway disease. The patient has been a long-term smoker with no history of COPD or asthma. He was started on nebulizers. He was continued on azithromycin to finish his 5-day course and was given ceftriaxone 1 g IV q.24 hours. As well, he was started on prednisone 40 mg p.o. daily. The patient has done well throughout hospitalization. He had no noted leukocytosis. He has remained afebrile throughout hospitalization. He has been hemodynamically stable. It was noted that he was a little hypertensive throughout hospitalization with systolic blood pressures between 110 and 185. His lisinopril has been increased from 2.5 mg b.i.d. to 5 mg p.o. b.i.d. This will need to be watched closely and this was discussed with the patient. The patient reports that he feels stable for discharge to home today. He reports he feels much better. He has been titrated off oxygen and maintaining O2 saturation between 94% and 97% on room air. The patient denies much cough or sputum production. He denies wheezing or shortness of breath. No chest pain. He will be sent home on a 3-day course of prednisone and will be switched to Ceftin to cover his pneumonia for a 5-day course. He had negative blood cultures. Negative legionella and Streptococcus pneumoniae urinary antigens. Negative urine culture. Please note, his sputum culture is still pending. The patient's renal function appears to be around his baseline. Please note on admission, he did have an ABG which showed pH of 7.47, pCO2 of 36 , pO2 of 63, HCO3 of 26.9, O2 saturation of 93.5, base excess of 2.7. The patient continues to smoke approximately 4 cigarettes a day. Smoking cessation was conducted with the patient. He has refused nicotine patch on discharge at this time. He was strongly encouraged to discuss this with his primary care provider The patient has been referred to Dr. Martin, fishing rod marker, as I think the patient would benefit from pulmonary function testing and the pulmonology consult. The patient agrees to this plan. DISCHARGE PLAN: 1. Follow up with primary care provider within 1 week. 2. The patient was instructed if he has any worsening symptoms to return to the emergency department. The patient was given instructions on how and when to use the albuterol inhaler. 3. The patient was instructed to follow up with Dr. Martin for pulmonary consult. 4. The patient was instructed that his blood pressure needs to be followed up closely. 5. Please note, the sputum culture is still pending at the time of discharge and will need to be followed up on by the primary care provider. 6. The patient is stable for discharge to home. TIME SPENT: Approximately 60 minutes was spent on this discharge. GORDO CHAU NP [id number]/[facility] #: [id number] MEAGAN
== END 2018-08-20 15:05 | disposition home or self-care (01) | DRG 139 ==
LOC: ED 17:40 → MED 20:55 → OBSVTOIN 08-18 14:00
PROVIDERS: ADMIT Pediatrics; ATTEND Internal Medicine
DX: J18.9 Pneumonia, unspecified organism (principal); I25.10 Atherosclerotic heart disease of native coronary artery without angina pectoris; E78.5 Hyperlipidemia, unspecified; N52.9 Male erectile dysfunction, unspecified; I12.9 Hypertensive chronic kidney disease with stage 1 through stage 4 chronic kidney disease, or unspecified chronic kidney disease; F17.210 Nicotine dependence, cigarettes, uncomplicated; R09.02 Hypoxemia; N18.2 Chronic kidney disease, stage 2 (mild); I25.5 Ischemic cardiomyopathy; Z81.1 Family history of alcohol abuse and dependence; Z80.8 Family history of malignant neoplasm of other organs or systems; Z82.49 Family history of ischemic heart disease and other diseases of the circulatory system; Z95.5 Presence of coronary angioplasty implant and graft; Z79.82 Long term (current) use of aspirin; I25.2 Old myocardial infarction; Z83.3 Family history of diabetes mellitus
CPT/HCPCS: 36415; 71046; 80048; 80053; 81003; 81015; 82550; 82553; 82803; 83605; 83735; 83880; 84484; 85025; 85730; 86140; 87040; 87070; 87086; 87205; 87899; 93005; 99285; A9270-GY; G0378; J0456; J0696; J1644; J3480; J7512

== ENCOUNTER → 2018-09-02 10:19 | Day surgery (SDC) | payer OTHER ==
[~2018-09-02 10:19] MED LIST: Heparin 2 UNITS/ML IVPREMIX* 3,000 UNIT/1,500 ML BAG IV ONE; Heparin(*) 1000 UNIT/ML 10 ML VIAL CATH LAB IV ONE; Iodixanol 320 (CONTRAST) 100 ML SDV ONE; Iohexol 350 (CONTRAST) 200 ML MDV IV ONE; Lidocaine 1% INJ* 10 MG/ML 30 ML SDV ONE; Midazolam* 1 MG/ML 5 ML VIAL (5 MG) ONE; NS 0.9% 1000 ML** 1,000 ML IV SCH; VERAPAMIL 2.5 MG/ML 2 ML VIAL ** 5 mg/2 ml ONE; fentaNYL* 50 MCG/ML 2 ML VIAL (100 MCG VIAL) ONE; nitroGLYCERIN DRIP* 25,000 MCG/250 ML BTL ONE
[2018-09-02 11:51] LABS: BUN/Creatinine Ratio 14.9 (8-20); Calcium 9.2 mg/dL (8.6-10.3); EGFR African American 66.2 (>60); EGFR Non-African American 54.8 (>60); Potassium 3.8 mmol/L (3.5-5.0)
[2018-09-02 16:26] VITALS: BP 157/76
--- NOTE | 2018-09-03 13:15 | CATH ---
"*[facility]* [place] [address] Main: [phone] [email or web address] Cardiac Catheterization Patient: Chino Khan : 1960 Study Date: 09/02/2018 Age: 58 Gender: M HR: Height: 67 in /170.2 cm BSA: 2.31 m^2 Weight: 238 lb /108.2 kg BMI: 37.4 kg/m^2 [employer] Department Manager: Karly Ellison MD Ordering Physician: Brock Davies MD Referring Physician: Brock Davies MD, Ashlin - Right coronary angiography. - Left coronary angiography. - Left heart catheterization with angiography. Summary: 1. LAD: Distal vessel lesion: There is a 50% stenosis. 2. Right coronary: Proximal vessel lesion: There is a 100% stenosis, RPDA not visualized via collaterals, therefore dominance not assessed. 3. Left ventricle: Systolic function is moderately reduced. The estimated ejection fraction is 35-40%. Severe hypokinesis of the diaphragmatic myocardium. 4. 1 VCAD w right coronary artery [employer] SUPER[employer] OPEN PIT, fixed IW MPI defect. History: PMH: Myocardial infarction. Fixed IW defect, atypical CP. Functional status: Prior history of congestive heart failure. Risk factors: Current tobacco use. Hypertension. Dyslipidemia. Family history is significant for coronary artery disease. Medications: The patient received no antianginal therapy in the last two weeks. Labs, prior tests, procedures, and surgery: Stress myocardial perfusion imaging. Abnormal. Catheterization with coronary intervention (03/10/2016). Blood tests: International normalized ratio (INR) . Partial thromboplastin time (PTT) of 36.5 sec. Serum potassium (K) of 4.4 mEq/l. Serum sodium (Na) of 139 mEq/l. Serum creatinine (current admission) of 1.34 mg/dl. Blood urea nitrogen of 20 mg/dl. Glucose of 108 mg/dl. Platelet count of 378 th/ul. White blood cell count (WBC) of 0.01 th/ul. Red blood cell count (RBC) of 4290 th/ul. Hematocrit of 40 %. Hemoglobin (pre-procedure) of 13.1 g/dl. Study data: Study status: Cardiac cath: elective. Location: Catheterization laboratory. Consent: The risks, benefits, and alternatives to the procedure were explained to the patient and/or their healthcare pharmaceutical representative and written informed consent was obtained. All available pre-procedure labs were reviewed. Height: 170.2 cm. 67 in. Weight: 108.2 kg. 238 lb. Body surface area: 2.31 m^2. Body mass index: 37.4 kg/m^2. Procedure: 1. Initial setup. The patient was brought to the laboratory. Surface ECG leads, blood pressure measurements, and pulse oximetric signals were monitored. A baseline seven lead ECG was recorded. A time out was observed per protocol. 2. Skin preparation. The planned puncture sites were prepped and draped in the usual sterile manner. 3. Local anesthesia. 1% lidocaine was administered. 4. Supplemental oxygen. Oxygen, 2 L/min was administered throughout the procedure. 5. Sedation. Moderate sedation was administered. 6. Right radial artery access. A 6F [place] Slender sheath was advanced into the vessel. 7. Selective right coronary angiography. A 5F TIG 4.0 catheter was advanced into the right coronary vessel ostium under fluoroscopic guidance. Contrast was injected. Images were obtained in multiple projections. 8. Supplemental oxygen. Oxygen, 3 L/min was administered throughout the procedure. 9. Supplemental oxygen. Oxygen, 4 L/min was administered throughout the procedure. 10. Selective left coronary angiography. A 5F FL 3.5 Diagnostic Impulse catheter was advanced into the left coronary vessel ostium under fluoroscopic guidance. Contrast was injected. Images were obtained in multiple projections. 11. Left heart catheterization with angiography. A 5F PIG Short Radial catheter was advanced across the aortic valve to the left ventricle under fluoroscopic guidance. 20 ml of contrast was injected at 10 ml/s. 12. Right radial artery hemostasis. Vessel closure was achieved with a Regular Vasc Band device. Study completion: Minimal estimated blood loss. All catheters inserted during the procedure were removed. There were no apparent complications. Administered medications: Aspirin, 81mg, PO. (Radial) Nitroglycerin, 300mcg, intra-arterially. (Radial) Verapamil, 3mg, intra-arterially. (Radial) Heparin, 3,000units, intra-arterially. VERSED (Midazolam), for a total dose of 2mg, IV. Fentanyl, for a total dose of 100mcg, IV. NaCl 0.9% , infusion , at a rate of 100 ml/hr. Contrast: Visipaque 75 ml (total dose). Visipaque 125 ml (wasted). Radiation: Fluoroscopy dose: 153.1 cGy. Discharge: The patient tolerated the procedure well and was discharged from the lab in stable condition. Findings Coronary arteries: Dominance was not assessed. Left main: Minor luminal irregularities. LAD: Prior intervention: stent in the proximal LAD. The stented segment is patent. No restenosis. Distal vessel lesion: There is a 50% stenosis. Left circumflex: Cx patent PDA , no visible L to R collateral to distal RCA. Prior intervention: stent in the proximal left circumflex. The stented segment is patent. 1st obtuse marginal: Minor luminal irregularities. Right coronary: Proximal vessel lesion: There is a 100% stenosis, RPDA not visualized via collaterals, therefore dominance not assessed. Mitral valve: There is no significant regurgitation. Left ventricle: Systolic function is moderately reduced. The estimated ejection fraction is 35-40%. Regional wall motion abnormalities: Severe hypokinesis of the diaphragmatic myocardium. Hemodynamics: + + + |Stage description |Condition 1 - | + + + |LV pressure s/d, ed |122/9, 21, dP/pa=1132 mm Hg/s| + + + |Arterial pressure s/d (m)|127/63 (85) | + + + Prepared and electronically signed by Karly Ellison MD 09/03/2018 13:14"
== END | disposition home or self-care (01) ==
LOC: CHICATH 10:19
PROVIDERS: ATTEND Internal Medicine Cardiovascular Disease
DX: I25.5 Ischemic cardiomyopathy (principal); I25.10 Atherosclerotic heart disease of native coronary artery without angina pectoris; I25.2 Old myocardial infarction; Z79.82 Long term (current) use of aspirin; I10 Essential (primary) hypertension; Z72.0 Tobacco use; E78.5 Hyperlipidemia, unspecified
CPT/HCPCS: 36415; 80048; 93458; J1644; J2250; J3010

== ENCOUNTER 2019-03-17 12:36 | Emergency (ER) | payer OTHER ==
[2019-03-17 13:14] LABS: ABS Basophils 0.1 10^3/ul (0-0.2); ABS Eosinophils 0.1 10^3/ul (0-0.6); ABS Lymphocytes 1.8 10^3/ul (1.0-4.8); ABS Monocytes 0.5 10^3/ul (0-0.8); ABS Neutrophils 3.7 10^3/ul (1.5-7.7); Eosinophil % 2.3 %; Hematocrit 43 % (42-52); Hemoglobin 14.5 g/dL (14.0-18.0); Lymphocyte % 29.1 %; Mean Corpuscular HGB Conc 34 g/dL (31-36); Mean Corpuscular Hemoglobin 31 pg (27-31); Mean Corpuscular Volume 92 fL (80-94); Mean Platelet Volume 8.2 fL (7.4-10.4); Nucleated Red Blood Cells % 0.1; Platelet Count 264 10^3/uL (150-450); Red Blood Count 4.68 10^6 /uL (4.18-5.48); Red Cell Distribution Width 15 % (10-15); White Blood Count 6.1 10^3/uL (3.5-10.8)
[2019-03-17 13:23] LABS: INR 1.03 (0.82-1.09)
[2019-03-17] MEDS ORDERED: Aspirin 81 mg CHEW TAB* 81 MG TAB.CHEW PO ONE (13:24)
[2019-03-17] MEDS ORDERED: Nitroglycerin TAB 0.4 MG* 0.4 MG TAB SL ONE (13:24)
--- NOTE | 2019-03-17 13:24 | ED ---
HPI Chest Pain - HPI Summary HPI Summary: This patient is a 59 year old male presenting to [facility] with a chief complaint of left sided chest pain since last night. He reports nausea and SOB. He has a Hx of OK 2 times with stents placed. He states he was getting ready for work and sat down to gather his thoughts when he started feelign pressure on his chest. He thought the pain would pass but it stayed constant. He states the pressure is not as severe today but it is still there. He denies skin diaphoresis today but states he was last night. His last OK was 4-5 years ago and his last ECHO was within the last year. He did not take any Aspirin yet. Medications reviewed, allergies noted. - History of Current Complaint Chief Complaint: EDChestPainROMI Time Seen by Provider: 03/17/19 13:18 Hx Obtained From: Patient Onset/Duration: Started Hours Ago Pain Intensity: 5 Pain Scale Used: 0-10 Numeric - Additional Pertinent History Primary Care Physician: DEDRA - Allergy/Home Medications Allergies/Adverse Reactions: Allergies Allergy/AdvReac Type Severity Reaction Status Date / Time No Known Allergies Allergy Verified 03/17/19 13:25 PMH/Surg Hx/FS Hx/Imm Hx Endocrine/Hematology History: Denies: Hx Diabetes Cardiovascular History: Reports: Hx Angina, Hx Coronary Artery Disease, Hx Hypertension, Hx Myocardial Infarction Respiratory History: Denies: Hx Asthma, Hx Chronic Obstructive Pulmonary Disease (COPD) History: Denies: Hx Chronic Renal Failure Sensory History: Reports: Hx Contacts or Glasses Denies: Hx Deafness, Hx Hearing Aid Opthamlomology History: Reports: Hx Contacts or Glasses - Surgical History Surgery Procedure, Year, and Place: two stents - Immunization History Date of Tetanus Vaccine: unk Date of Influenza Vaccine: none Infectious Disease History: No Infectious Disease History: Denies: Traveled Outside the [place] in Last 30 Days - Family History Known Family History: Positive: Diabetes Negative: Cardiac Disease, Hypertension - Social History Alcohol Use: None Hx Substance Use: No Substance Use Type: Reports: Heroin Smoking Status (MU): Current Every Day Smoker Type: Cigarettes Review of Systems Positive: Skin Diaphoresis Positive: Chest Pain Positive: Shortness Of Breath Positive: Nausea All Other Systems Reviewed And Are Negative: Yes Physical Exam - Summary Physical Exam Summary: Constitutional: Well-developed, Well-nourished, Alert. (-) Distressed Skin: Warm, Dry HENT: Normocephalic; Atraumatic Eyes: Conjunctiva normal Neck: Musculoskeletal ROM normal neck. (-) JVD, (-) Stridor, (-) Tracheal deviation Cardio: Rhythm regular, rate normal, Heart sounds normal; Intact distal pulses; Radial pulses are 2+ and symmetric. (-) Murmur Pulmonary/Chest wall: Effort normal. (-) Respiratory distress, (-) Wheezes, (-) Rales Abd: Soft, (-) tenderness, (-) Distension, (-) Guarding, (-) Rebound Musculoskeletal: (-) Edema Lymph: (-) Cervical adenopathy Neuro: Alert, Oriented x3 Psych: Mood and affect Normal Triage Information Reviewed: Yes Vital Signs On Initial Exam: Initial Vitals Temp Pulse Resp BP Pulse Ox 98.6 F 104 14 156/78 98 03/17/19 12:40 03/17/19 12:40 03/17/19 12:40 03/17/19 12:40 03/17/19 12:40 Vital Signs Reviewed: Yes Procedures - Sedation Patient Received Moderate/Deep Sedation with Procedure: No Diagnostics - Vital Signs Vital Signs Temp Pulse Resp BP Pulse Ox 03/17/19 12:40 98.6 F 104 14 156/78 98 - Laboratory Lab Results: Lab Results 03/17/19 Range/Units 13:01 WBC 6.1 (3.5-10.8) 10^3/uL RBC 4.68 (4.18-5.48) 10^6 /uL Hgb 14.5 (14.0-18.0) g/dL Hct 43 (42-52) % MCV 92 (80-94) fL MCH 31 (27-31) pg MCHC 34 (31-36) g/dL RDW 15 (10-15) % Plt Count 264 (150-450) 10^3/uL MPV 8.2 (7.4-10.4) fL Neut % (Auto) 60.1 % Lymph % (Auto) 29.1 % [place] % (Auto) 7.4 % Eos % (Auto) 2.3 % Baso % (Auto) 1.1 % Absolute Neuts (auto) 3.7 (1.5-7.7) 10^3/ul Absolute Lymphs (auto) 1.8 (1.0-4.8) 10^3/ul Absolute Monos (auto) 0.5 (0-0.8) 10^3/ul Absolute Eos (auto) 0.1 (0-0.6) 10^3/ul Absolute Basos (auto) 0.1 (0-0.2) 10^3/ul Absolute Nucleated RBC 0.0 10^3/ul Nucleated RBC % 0.1 Result Diagrams: 03/17/19 13:01 03/17/19 13:01 Lab Statement: Any lab studies that have been ordered have been reviewed, and results considered in the medical decision making process. - Radiology CXR Radiology Interpretation Completed By: Radiologist Summary of Radiographic Findings: No acute cardiopulmonary process by radiograph. ED Provider has reviewed this report. - EKG 1238 Cardiac Rate: Tachycardia EKG Rhythm: Sinus Tachycardia Summary of EKG Findings: P-waves in II, III, and aVF. Unchanged from 04/15/18. ED Physician has reviewed and interpreted this report. Chest Pain Course/Dx - Course Course Of Treatment: Patient is here with chest pain that was relieved with nitroglycerin. Patient has a history of ACS. Patient had a catheter in August by Dr. Ellison which showed 100% occlusion in his right coronary artery. Patient did not receive a stent at that time. Patient had serial troponins which were stable. 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 Cardiology was called and they think patient would benefit from medical management and his presentation is not concerning for something that needs to be brought into the hospital. They suggested starting Norvasc for the patient following up with Dr. Avila to make sure he was properly medically managed. - Diagnoses Provider Diagnoses: Angina at rest, Chest pain - Provider Notifications Discussed Care Of Patient With: Mariama Weinstein Time Discussed With Above Provider: 14:11 - Medical management with Norvast and discharge Discharge ED - Sign-Out/Discharge Documenting (check all that apply): Patient Departure - Discharge - Discharge Plan Condition: Stable Disposition: HOME Prescriptions: amLODIPine TAB* [Norvasc 5 mg TAB*] 10 mg PO DAILY 30 Days #30 tab Patient Education Materials: Angina (ED) Referrals: Latrell Avila MD [Primary Care Provider] - Additional Instructions: Follow up with Dr. Avila to discuss your medicine to make sure you're on the best medicines for your heart. Come back with severe chest pain, trouble breathing, or any other concerning symptoms. Take the medication sent to your pharmacy as prescribed. - Billing Disposition and Condition Condition: STABLE Disposition: Home - Attestation Statements Document Initiated by Jose: Yes Documenting Scribe: Hasmukh Rodrigues Provider For Whom Jose is Documenting (Include Credential): Christopher Post MD Scribe Attestation: I, Hasmukh Rodrigues, scribed for Christopher Post MD on 03/17/19 at 1637. Scribe Documentation Reviewed: Yes Provider Attestation: The documentation as recorded by the Hasmukh philip accurately reflects the service I personally performed and the decisions made by me, Christopher Post MD Status of Scribe Document: Viewed
[2019-03-17 13:41] LABS: Albumin/Globulin Ratio 1.3 (1-3); BUN/Creatinine Ratio 17.1 (8-20); Calcium 9.1 mg/dL (8.6-10.3); EGFR Non-African American 67.8 (>60); Globulin 3.2 g/dL (2-4); Potassium 4.6 mmol/L (3.5-5.0); Total Bilirubin 0.2 mg/dL (0.2-1.0); Total Protein 7.2 g/dL (6.4-8.9)
[2019-03-17 13:46] LABS: Troponin I 0.03 ng/mL (<0.03)
[2019-03-17 16:22] LABS: Troponin I 0.03 ng/mL (<0.03)
[2019-03-17 16:26] VITALS: BP 107/60
== END 2019-03-17 16:43 | disposition home or self-care (01) ==
LOC: ED 12:36
DX: I20.9 Angina pectoris, unspecified (principal); R07.9 Chest pain, unspecified; I25.10 Atherosclerotic heart disease of native coronary artery without angina pectoris; I10 Essential (primary) hypertension; I25.2 Old myocardial infarction; F17.210 Nicotine dependence, cigarettes, uncomplicated
CPT/HCPCS: 36415; 71045; 80053; 83880; 84484; 85025; 85379; 85610; 93005; 99283; A9270-GY

== ENCOUNTER 2019-04-07 17:01 | Emergency (ER) | payer OTHER ==
[2019-04-07 17:46] LABS: ABS Basophils 0.1 10^3/ul (0-0.2); ABS Eosinophils 0.1 10^3/ul (0-0.6); ABS Lymphocytes 1.6 10^3/ul (1.0-4.8); ABS Monocytes 0.6 10^3/ul (0-0.8); ABS Neutrophils 4.8 10^3/ul (1.5-7.7); Eosinophil % 1.7 %; Hematocrit 41 % (42-52); Hemoglobin 13.8 g/dL (14.0-18.0); Lymphocyte % 22.2 %; Mean Corpuscular HGB Conc 34 g/dL (31-36); Mean Corpuscular Hemoglobin 31 pg (27-31); Mean Corpuscular Volume 91 fL (80-94); Platelet Count 232 10^3/uL (150-450); Red Blood Count 4.51 10^6 /uL (4.18-5.48); Red Cell Distribution Width 15 % (10-15); White Blood Count 7.1 10^3/uL (3.5-10.8)
[2019-04-07 17:51] LABS: INR 1.21 (0.82-1.09)
[2019-04-07 18:03] LABS: Albumin 3.8 g/dL (3.2-5.2); Albumin/Globulin Ratio 1.2 (1-3); BUN/Creatinine Ratio 12.6 (8-20); EGFR Non-African American 67.8 (>60); Globulin 3.1 g/dL (2-4); Potassium 3.7 mmol/L (3.5-5.0); Total Bilirubin 0.6 mg/dL (0.2-1.0); Total Protein 6.9 g/dL (6.4-8.9)
[2019-04-07 18:04] LABS: Troponin I 0.01 ng/mL (<0.03)
--- NOTE | 2019-04-07 18:32 | ED ---
HPI Chest Pain - HPI Summary HPI Summary: The patient is a 59 y/o male presenting to [facility] with a chief complaint of chest pain onset over the last few days. He reports that he has been suffering from chest congestion for the last week as well as rhinorrhea, chest congestion with CP, productive cough with yellow phlegm, diaphoresis, subjective fevers, SOB, and an episode of epistaxis although he has never had a nosebleed before. Symptoms are currently rated 8/10 in severity. He has not taken any medications [employer] for treatment. He had PNA a few months ago. He was here two weeks ago but states that it was different symptoms than todays visit. PMHx: CAD, HTN, AK. Current smoker, no EtOH, previous substance use. Medications reviewed. Allergies noted. - History of Current Complaint Chief Complaint: EDChestPainROMI Time Seen by Provider: 04/07/19 18:01 Hx Obtained From: Patient Onset/Duration: Started Days Ago, Still Present Timing: Intermittent Initial Severity: Mild Current Severity: Moderate Pain Intensity: 8 Pain Scale Used: 0-10 Numeric Chest Pain Location: Diffuse Chest Pain Radiates: No Character: Cough, Productive, Other: - chest congestion Aggravating Factor(s): Nothing Alleviating Factor(s): Nothing Associated Signs and Symptoms: Positive: Chest Pain, Shortness of Breath, Fever , Diaphoresis, Productive Cough, Other: - epistaxis - Additional Pertinent History Primary Care Physician: [id number] - Allergy/Home Medications Allergies/Adverse Reactions: Allergies Allergy/AdvReac Type Severity Reaction Status Date / Time No Known Allergies Allergy Verified 04/07/19 17:28 Home Medications: Home Medications Atorvastatin* [Lipitor*] 10 mg PO DAILY 04/07/19 [History Confirmed 04/07/19] Buprenorp/Nalox 8-2 MG FILM [Suboxone] 1.5 film SL DAILY 04/07/19 [History Confirmed 04/07/19] Carvedilol TAB* [Coreg TAB*] 12.5 mg PO BID 04/07/19 [History Confirmed 04/07/19 ] Furosemide TAB* [Lasix TAB*] 10 mg PO DAILY 04/07/19 [History Confirmed 04/07/19 ] Lisinopril TAB* [Prinivil TAB*] 5 mg PO DAILY 04/07/19 [History Confirmed ] Pantoprazole TAB * [Protonix TAB*] 40 mg PO DAILY 04/07/19 [History Confirmed ] amLODIPine TAB* [Norvasc 5 mg TAB*] 5 mg PO DAILY 04/07/19 [History Confirmed ] buPROPion SR TAB* [Wellbutrin SR TAB*] 150 mg PO BID 04/07/19 [History Confirmed 04/07/19] PMH/Surg Hx/FS Hx/Imm Hx Endocrine/Hematology History: Denies: Hx Diabetes Cardiovascular History: Reports: Hx Angina, Hx Coronary Artery Disease, Hx Hypertension, Hx Myocardial Infarction Respiratory History: Denies: Hx Asthma, Hx Chronic Obstructive Pulmonary Disease (COPD) History: Denies: Hx Chronic Renal Failure Sensory History: Reports: Hx Contacts or Glasses Denies: Hx Deafness, Hx Hearing Aid Opthamlomology History: Reports: Hx Contacts or Glasses - Surgical History Surgical History: None Surgery Procedure, Year, and Place: two stents - Immunization History Date of Tetanus Vaccine: unk Date of Influenza Vaccine: none Infectious Disease History: No Infectious Disease History: Denies: Traveled Outside the [place] in Last 30 Days - Family History Known Family History: Positive: Diabetes Negative: Cardiac Disease, Hypertension - Social History Alcohol Use: None Hx Substance Use: Yes Substance Use Type: Reports: Heroin Substance Use Comment - Amount & Last Used: heroin- 2007 Smoking Status (MU): Current Every Day Smoker Type: Cigarettes Review of Systems Positive: Fever, Skin Diaphoresis Positive: Epistaxis, Nasal Discharge Positive: Chest Pain Positive: Shortness Of Breath, Cough - productive, yellow phlegm All Other Systems Reviewed And Are Negative: Yes Physical Exam - Summary Physical Exam Summary: Constitutional: Well-developed, Well-nourished, Alert. (-) Distressed Skin: Warm, Dry HENT: Normocephalic; Atraumatic Eyes: Conjunctiva normal Neck: Musculoskeletal ROM normal neck. (-) JVD, (-) Stridor, (-) Nuchal rigidity Cardio: Rhythm regular, rate normal, Heart sounds normal; Intact distal pulses; Radial pulses are 2+ and symmetric. (-) Murmur Pulmonary/Chest wall: Effort normal. (-) Respiratory distress, (+) Rhonchi in left upper lobe, (+) Wheezes bilaterally, (-) Rales Abd: Soft, (-) tenderness, (-) Distension, (-) Guarding, (-) Rebound Musculoskeletal: (-) Edema Neuro: Alert, Oriented x3 Psych: Mood and affect Normal Triage Information Reviewed: Yes Vital Signs On Initial Exam: Initial Vitals Temp Pulse Resp BP Pulse Ox 98.8 F 65 20 122/72 92 04/07/19 17:24 04/07/19 17:24 04/07/19 17:24 04/07/19 17:24 04/07/19 17:24 Vital Signs Reviewed: Yes Procedures - Sedation Patient Received Moderate/Deep Sedation with Procedure: No Diagnostics - Vital Signs Vital Signs Temp Pulse Resp BP Pulse Ox 04/07/19 17:24 98.8 F 65 20 122/72 92 - Laboratory Lab Results: Lab Results 04/07/19 04/07/19 04/07/19 Range/Units 17:36 17:37 17:37 WBC 7.1 (3.5-10.8) 10^3/uL RBC 4.51 (4.18-5.48) 10^6 /uL Hgb 13.8 L (14.0-18.0) g/dL Hct 41 L (42-52) % MCV 91 (80-94) fL MCH 31 (27-31) pg MCHC 34 (31-36) g/dL RDW 15 (10-15) % Plt Count 232 (150-450) 10^3/uL MPV 8.0 (7.4-10.4) fL Neut % (Auto) 67.4 % Lymph % (Auto) 22.2 % [place] % (Auto) 7.9 % Eos % (Auto) 1.7 % Baso % (Auto) 0.8 % Absolute Neuts (auto) 4.8 (1.5-7.7) 10^3/ul Absolute Lymphs (auto) 1.6 (1.0-4.8) 10^3/ul Absolute Monos (auto) 0.6 (0-0.8) 10^3/ul Absolute Eos (auto) 0.1 (0-0.6) 10^3/ul Absolute Basos (auto) 0.1 (0-0.2) 10^3/ul Absolute Nucleated RBC 0.0 10^3/ul Nucleated RBC % 0.0 INR (Anticoag Therapy) 1.21 H (0.82-1.09) Sodium 140 (135-145) mmol/L Potassium 3.7 (3.5-5.0) mmol/L Chloride 106 (101-111) mmol/L Carbon Dioxide 29 (22-32) mmol/L Anion Gap 5 (2-11) mmol/L BUN 14 (6-24) mg/dL Creatinine 1.11 (0.67-1.17) mg/dL Est GFR ( Amer) 82.0 (>60) Est GFR (Non-Af Amer) 67.8 (>60) BUN/Creatinine Ratio 12.6 (8-20) Glucose 106 H (70-100) mg/dL Calcium 9.0 (8.6-10.3) mg/dL Total Bilirubin 0.60 (0.2-1.0) mg/dL AST 12 L (13-39) U/L ALT 10 (7-52) U/L Alkaline Phosphatase 124 H (34-104) U/L Troponin I Pending Total Protein 6.9 (6.4-8.9) g/dL Albumin 3.8 (3.2-5.2) g/dL Globulin 3.1 (2-4) g/dL Albumin/Globulin Ratio 1.2 (1-3) Result Diagrams: 04/07/19 17:36 04/07/19 17:37 Lab Statement: Any lab studies that have been ordered have been reviewed, and results considered in the medical decision making process. - Radiology CXR Radiology Interpretation Completed By: ED Physician Summary of Radiographic Findings: No acute process. ED physician has reviewed and interpreted this report. Pending official read. - EKG 1717 Cardiac Rate: NL - 65 BPM EKG Rhythm: Sinus Rhythm EKG Comparison: No Significant Change - compared to 05/16/18 Summary of EKG Findings: An EKG at 1717 reveals normal sinus rhythm at 65 BPM, T wave inversions in I, aVL, and V4-V6. No STEMI. No significant change compared to 05/16/2018. ED physician has reviewed and interpreted this EKG. Re-Evaluation - Re-Evaluation First Eval Re-Evaluation Time: 20:00 Change: Improved Comment: Patient is feeling better after neb. Discussed plan for discharge. Chest Pain Course/Dx - Course Course Of Treatment: 59 y/o male p/w cough, congestion and chest pain after coughing for one week. - VS w SpO2 95%, easy WOB. Wheezing on exam w rhonchi. CXR w/o infiltrate, no leukocytosis on labs do not suspect PNA. EKG w TWI but unchanged from prior years ago, CP does not sound ischemic and he relates it to coughing, do not suspect ACS. Suspect patient likely has viral URI/bronchitis. Improved w neb. Does still smoke a few cigarettes per day which could be contributing to cough. Given neb Rx. Will return for worsening symptoms. - Diagnoses Provider Diagnoses: URI (upper respiratory infection), Cough, Chest pain Discharge ED - Sign-Out/Discharge Documenting (check all that apply): Patient Departure - Patient will be discharged home. - Discharge Plan Condition: Stable Disposition: HOME Prescriptions: Albuterol HFA INHALER* [Ventolin HFA Inhaler*] 2 puff INH Q4H PRN 30 Days #1 mdi PRN Reason: Wheezing Patient Education Materials: Acute Bronchitis (ED) Referrals: Latrell Avila MD [Primary Care Provider] - 3 Days Additional Instructions: You were seen in the emergency department for cough and chest pain. Please take albuterol inhaler as needed for wheezing. If your XRay is over-read by radiology tomorrow we will call you Please follow up with your primary care doctor in next 2-3 days and return to emergency department for worsening cough, trouble breathing, chest pain, or concerning symptoms. It was a pleasure taking care of you today. - Billing Disposition and Condition Condition: STABLE Disposition: Home - Attestation Statements Document Initiated by Vladibmary: Yes Documenting Scribe: Lizabeth Sung Provider For Whom Jose is Documenting (Include Credential): Dr. Brad Mccollum MD Scribe Attestation: I, Lizabeth Sung, scribed for Dr. Brad Mccollum MD on 04/08/19 at 2201. Scribe Documentation Reviewed: Yes Provider Attestation: The documentation as recorded by the Lizabeth philip accurately reflects the service I personally performed and the decisions made by me, Dr. Brad Mccollum MD Status of Scribe Document: Viewed
[2019-04-07] MEDS ORDERED: Albuterol/Ipratropium NEB.SOL* Albuterol 2.5 MG/Ipratropium 0.5 MG 3 ML INH ONE (18:40)
[2019-04-07] MEDS ORDERED: Amoxicillin/Clavulanate TAB* 875 MG PO ONE (19:57)
[2019-04-07] MEDS ORDERED: DOXYcycline CAP(*) 100 MG PO ONE (19:57)
[2019-04-07] MEDS ORDERED: Benzonatate CAP* 100 MG PO ONE (20:03)
[2019-04-07 20:27] VITALS: BP 157/65
== END 2019-04-07 20:20 | disposition home or self-care (01) ==
LOC: ED 17:01
DX: R07.9 Chest pain, unspecified (principal); J06.9 Acute upper respiratory infection, unspecified; I25.10 Atherosclerotic heart disease of native coronary artery without angina pectoris; I10 Essential (primary) hypertension; I25.2 Old myocardial infarction; F17.210 Nicotine dependence, cigarettes, uncomplicated; Z79.899 Other long term (current) drug therapy
CPT/HCPCS: 36415; 71046; 80053; 84484; 85025; 85610; 93005; 99282; A9270-GY

== ENCOUNTER 2020-01-11 02:13 | Inpatient (IN) ==
[2020-01-11 02:37] LABS: ABS Basophils 0.1 10^3/ul (0-0.2); ABS Lymphocytes 3.4 10^3/ul (1.0-4.8); ABS Monocytes 1.1 10^3/ul (0-0.8); ABS Neutrophils 6.9 10^3/ul (1.5-7.7); Eosinophil % 0.4 %; Hematocrit 51 % (42-52); Hemoglobin 16.9 g/dL (14.0-18.0); Lymphocyte % 29.7 %; Mean Corpuscular HGB Conc 33 g/dL (31-36); Mean Corpuscular Hemoglobin 31 pg (27-31); Mean Corpuscular Volume 93 fL (80-94); Mean Platelet Volume 8.5 fL (7.4-10.4); Platelet Count 211 10^3/uL (150-450); Red Cell Distribution Width 14 % (10-15); White Blood Count 11.5 10^3/uL (3.5-10.8)
[2020-01-11 02:50] LABS: ALT 21 U/L (7-52); AST 24 U/L (13-39); Albumin 4.6 g/dL (3.2-5.2); Albumin/Globulin Ratio 1.4 (1-3); Alkaline Phosphatase 145 U/L (34-104); Anion Gap 11 mmol/L (2-11); BUN/Creatinine Ratio 9.4 (8-20); Blood Urea Nitrogen 19 mg/dL (6-24); CO2 Carbon Dioxide 24 mmol/L (22-32); Calcium 9.4 mg/dL (8.6-10.3); Chloride 109 mmol/L (101-111); EGFR African American 41.1 (>60); Globulin 3.2 g/dL (2-4); Glucose 195 mg/dL (70-100); Sodium 144 mmol/L (135-145); Total Protein 7.8 g/dL (6.4-8.9)
[2020-01-11 02:55] LABS: Troponin I 0.04 ng/mL (<0.03)
[2020-01-11 03:11] LABS: Acetaminophen < 15 mcg/mL; Alcohol, S < 10 mg/dL (<10); Salicylate < 2.50 mg/dL (<30)
[2020-01-11] MEDS ORDERED: Naloxone 0.4 mg VIAL 0.4 mg/ml 1 ml VIAL IV PUSH ONE (03:39)
[2020-01-11] MEDS ORDERED: Albuterol/Ipratropium NEB.SOL (2.5/0.5 MG) 3 ML NEB.SOLN INH ONE ×2 (03:48→04:45)
[2020-01-11 06:03] LABS: Troponin I 0.04 ng/mL (<0.03)
[2020-01-11] MEDS ORDERED: Perflutren Lipid Microsphere 3 ML VIAL ONE (08:10)
[2020-01-11] MEDS: Heparin 5000 UNITS/ML 1 mL VIAL SUBCUT SCH ×2 (09:07→14:12)
[2020-01-11] MEDS ORDERED: Albuterol HFA INHALER 8 gm MDI INH PRN ×2 (14:00→14:05)
[2020-01-11 14:39] LABS: Troponin I 0.04 ng/mL (<0.03)
[2020-01-11] MEDS ORDERED: Pantoprazole 80 mg in NS BAG 80 MG/250 ML BAG IV ONE (16:45)
[2020-01-11 17:12] LABS: Urine Appearance Cloudy; Urine Bilirubin Negative (Negative); Urine Blood 1+ (Negative); Urine Color Yellow; Urine Glucose Negative (Negative); Urine Ketones Negative (Negative); Urine Nitrite Negative (Negative); Urine Protein 2+(100 mg/dL) (Negative); Urine Specific Gravity 1.018 (1.010-1.030); Urine Urobilinogen Negative (Negative)
[2020-01-11 17:17] LABS: Urine Bacteria Absent (Absent); Urine Red Blood Cell 1+(3-5/hpf) (Absent); Urine White Blood Cell Trace(0-5/hpf) (Absent)
[2020-01-11] MEDS: Nicotine GUM 2MG FRUIT FLAVOR PO PRN ×2 (17:34→22:59)
[2020-01-11 17:45] LABS: Urine Benzodiazepine Screen None Detected (None Detect); Urine Cannabinoids Screen None Detected (None Detect); Urine Opiates Screen Presumptive Positive (None Detect)
[2020-01-11] MEDS ORDERED: Pantoprazole VIAL 40 MG VIAL IV ONE (18:00)
[2020-01-11 18:46] LABS: Calcium 8.9 mg/dL (8.6-10.3); Potassium 3.7 mmol/L (3.5-5.0)
[2020-01-11 18:52] LABS: BUN/Creatinine Ratio 10.8 (8-20); EGFR African American 35.2 (>60); EGFR Non-African American 29.1 (>60)
[2020-01-11 20:41] LABS: Troponin I 0.03 ng/mL (<0.03)
[2020-01-11 20:48] LABS: Anion Gap 10 mmol/L (2-11); CO2 Carbon Dioxide 21 mmol/L (22-32); Calcium 8.7 mg/dL (8.6-10.3); Chloride 109 mmol/L (101-111); Sodium 140 mmol/L (135-145)
[2020-01-11 20:54] LABS: BUN/Creatinine Ratio 14.5 (8-20); Blood Urea Nitrogen 29 mg/dL (6-24); EGFR African American 41.6 (>60); EGFR Non-African American 34.4 (>60); Glucose 102 mg/dL (70-100)
[2020-01-11] MEDS ORDERED: Lidocaine PATCH 5% PATCH ONE (23:06)
[2020-01-11] MEDS ORDERED: Lactated Ringers 1000 ml BAG 1,000 ML IV SCH (23:45)
[2020-01-12] MEDS: Heparin 5000 UNITS/ML 1 mL VIAL SUBCUT SCH ×4 (00:01→21:44)
[2020-01-12] MEDS: Lidocaine PATCH 5% PATCH TRANSDERM SCH ×2 (00:01→08:50)
[2020-01-12 04:19] LABS: ABS Monocytes 0.6 10^3/ul (0-0.8); ABS Neutrophils 9.9 10^3/ul (1.5-7.7); Eosinophil % 0.1 %; Hematocrit 47 % (42-52); Hemoglobin 15.9 g/dL (14.0-18.0); Lymphocyte % 15.7 %; Mean Corpuscular HGB Conc 34 g/dL (31-36); Mean Corpuscular Hemoglobin 31 pg (27-31); Mean Corpuscular Volume 91 fL (80-94); Mean Platelet Volume 8.5 fL (7.4-10.4); Nucleated Red Blood Cells % 0.1; Platelet Count 143 10^3/uL (150-450); Red Cell Distribution Width 14 % (10-15); White Blood Count 12.5 10^3/uL (3.5-10.8)
[2020-01-12 04:43] LABS: Albumin 3.8 g/dL (3.2-5.2); Albumin/Globulin Ratio 1.4 (1-3); BUN/Creatinine Ratio 16.2 (8-20); Calcium 8.6 mg/dL (8.6-10.3); EGFR African American 51.2 (>60); EGFR Non-African American 42.3 (>60); Globulin 2.8 g/dL (2-4); Magnesium 1.7 mg/dL (1.9-2.7); Potassium 3.9 mmol/L (3.5-5.0); Total Bilirubin 0.7 mg/dL (0.2-1.0); Total Protein 6.6 g/dL (6.4-8.9)
[2020-01-12] MEDS ORDERED: Magnesium Sulfate 2 gm BAG 2 GM/50 ML BAG IVPB ONE (05:14)
[2020-01-12] MEDS ORDERED: Furosemide 20 mg/2 ml IV VIAL IV ONE (08:56)
[2020-01-12] MEDS: Nicotine GUM 2MG FRUIT FLAVOR PO PRN ×2 (09:14→21:49)
[2020-01-12 09:55] LABS: Creatine Kinase 431 U/L (10-223)
[2020-01-12 09:58] LABS: Creatine Kinase 407 U/L (10-223)
[2020-01-12 10:05] LABS: CKMB ng/mL 3.8 ng/mL (0.6-6.3)
[2020-01-12 10:08] LABS: CKMB ng/mL 5.1 ng/mL (0.6-6.3)
[2020-01-12 10:13] LABS: CKMB ng/mL 5.5 ng/mL (0.6-6.3)
[2020-01-12 10:17] LABS: Troponin I 0.03 ng/mL (<0.03)
[2020-01-12 11:19] LABS: CKMB ng/mL 4.1 ng/mL (0.6-6.3)
[2020-01-12 11:42] LABS: CKMB ng/mL 4.2 ng/mL (0.6-6.3)
[2020-01-12 11:53] LABS: Creatine Kinase 328 U/L (10-223)
[2020-01-12] MEDS: Lidocaine Patch REMOVE PATCH PATCH OFF SCH (21:45)
[2020-01-12 23:14] LABS: BUN/Creatinine Ratio 14.7 (8-20); Calcium 8.8 mg/dL (8.6-10.3); EGFR African American 64.9 (>60); EGFR Non-African American 53.6 (>60); Potassium 3.4 mmol/L (3.5-5.0)
[2020-01-12] MEDS ORDERED: Potassium Chloride LIQUID 20 MEQ/15 ML LIQUID PO ONE (23:52)
[2020-01-13] MEDS: Nicotine GUM 2MG FRUIT FLAVOR PO PRN ×6 (00:33→21:17)
[2020-01-13] MEDS: Heparin 5000 UNITS/ML 1 mL VIAL SUBCUT SCH ×3 (05:09→21:10)
[2020-01-13] MEDS: Lidocaine PATCH 5% PATCH TRANSDERM SCH (08:39)
[2020-01-13 10:24] LABS: ABS Eosinophils 0.1 10^3/ul (0-0.6); ABS Lymphocytes 1.6 10^3/ul (1.0-4.8); ABS Monocytes 0.9 10^3/ul (0-0.8); ABS Neutrophils 9.3 10^3/ul (1.5-7.7); Eosinophil % 1.1 %; Hematocrit 45 % (42-52); Hemoglobin 14.8 g/dL (14.0-18.0); Lymphocyte % 13.6 %; Mean Corpuscular HGB Conc 33 g/dL (31-36); Mean Corpuscular Hemoglobin 31 pg (27-31); Mean Corpuscular Volume 92 fL (80-94); Mean Platelet Volume 9.3 fL (7.4-10.4); Platelet Count 147 10^3/uL (150-450); Red Blood Count 4.86 10^6 /uL (4.18-5.48); Red Cell Distribution Width 14 % (10-15)
[2020-01-13 10:54] LABS: BUN/Creatinine Ratio 14.5 (8-20); Calcium 8.8 mg/dL (8.6-10.3); EGFR African American 77.2 (>60); EGFR Non-African American 63.8 (>60); Potassium 3.6 mmol/L (3.5-5.0)
[2020-01-13] MEDS: Lidocaine Patch REMOVE PATCH PATCH OFF SCH (21:11)
[2020-01-14] MEDS: Heparin 5000 UNITS/ML 1 mL VIAL SUBCUT SCH ×3 (04:32→22:23)
[2020-01-14] MEDS: Lidocaine PATCH 5% PATCH TRANSDERM SCH (09:02)
[2020-01-14 09:32] LABS: ABS Basophils 0.1 10^3/ul (0-0.2); ABS Eosinophils 0.2 10^3/ul (0-0.6); ABS Lymphocytes 1.9 10^3/ul (1.0-4.8); ABS Monocytes 0.9 10^3/ul (0-0.8); Eosinophil % 1.7 %; Hematocrit 45 % (42-52); Hemoglobin 15.1 g/dL (14.0-18.0); Lymphocyte % 15.9 %; Mean Corpuscular HGB Conc 34 g/dL (31-36); Mean Corpuscular Hemoglobin 31 pg (27-31); Mean Corpuscular Volume 92 fL (80-94); Mean Platelet Volume 8.9 fL (7.4-10.4); Nucleated Red Blood Cells % 0.1; Platelet Count 161 10^3/uL (150-450); Red Blood Count 4.85 10^6 /uL (4.18-5.48); Red Cell Distribution Width 14 % (10-15); White Blood Count 12.1 10^3/uL (3.5-10.8)
[2020-01-14] MEDS ORDERED: Vancomycin per Pharmacy 1 EA NOTE FOLLOW UP SCH (11:00)
[2020-01-14] MEDS ORDERED: Vancomycin 1,500 MG in NS 0.9% 250 ml 250 ML IVPB ONE (11:00)
[2020-01-14] MEDS: Nicotine GUM 2MG FRUIT FLAVOR PO PRN (14:26)
[2020-01-14] MEDS: Cefepime 2 GM in Dextrose 2 GM/50 ML BAG IV SCH (17:59)
[2020-01-14] MEDS ORDERED: Iohexol 350 (CONTRAST) 500 ML MDV IV ONE (19:05)
[2020-01-14] MEDS: Lidocaine Patch REMOVE PATCH PATCH OFF SCH (22:02)
[2020-01-14] MEDS: Vancomycin 1000 MG in NS 0.9% 250 ML IVPB SCH (22:23)
[2020-01-14] MEDS ORDERED: NS 0.9% 500 ml BAG 500 ML IV ONE (22:32)
[2020-01-15 05:23] LABS: Calcium 8.9 mg/dL (8.6-10.3); Potassium 3.9 mmol/L (3.5-5.0)
[2020-01-15 05:29] LABS: BUN/Creatinine Ratio 15.8 (8-20); EGFR African American 98.2 (>60); EGFR Non-African American 81.1 (>60)
[2020-01-15] MEDS: Cefepime 2 GM in Dextrose 2 GM/50 ML BAG IV SCH (05:55)
[2020-01-15] MEDS: Heparin 5000 UNITS/ML 1 mL VIAL SUBCUT SCH ×3 (05:56→23:49)
[2020-01-15 07:13] LABS: Hematocrit 44 % (42-52); Hemoglobin 14.7 g/dL (14.0-18.0); Mean Corpuscular HGB Conc 34 g/dL (31-36); Mean Corpuscular Hemoglobin 31 pg (27-31); Mean Corpuscular Volume 92 fL (80-94); Mean Platelet Volume 9.1 fL (7.4-10.4); Platelet Count 180 10^3/uL (150-450); Red Blood Count 4.76 10^6 /uL (4.18-5.48); Red Cell Distribution Width 14 % (10-15); White Blood Count 12.3 10^3/uL (3.5-10.8)
[2020-01-15] MEDS: Lidocaine PATCH 5% PATCH TRANSDERM SCH (08:25)
[2020-01-15] MEDS ORDERED: NS 0.9% 1000 ml BAG 1,000 ML IV ONE ×2 (08:37→16:27)
[2020-01-15 08:58] LABS: ABS Eosinophils 0.2 10^3/ul (0-0.6); ABS Lymphocytes 2.8 10^3/ul (1.0-4.8); ABS Monocytes 1.5 10^3/ul (0-0.8); ABS Neutrophils 7.7 10^3/ul (1.5-7.7); Lymphocyte % 23.1 %
[2020-01-15] MEDS ORDERED: metroNIDAZOLE IV 500 MG/100ML 500 MG/100 ML BAG IVPB SCH (10:00)
[2020-01-15] MEDS: Nicotine GUM 2MG FRUIT FLAVOR PO PRN ×3 (10:47→20:14)
[2020-01-15] MEDS ORDERED: Remdesivir 5 MG/ML LIQ IV Vial 200 MG in NS 0.9% 250 ml 210 ML IV ONE (11:29)
[2020-01-15] MEDS: Vancomycin 1000 MG in NS 0.9% 250 ML IVPB SCH (11:46)
[2020-01-15] MEDS: NS 0.9% 1000 ml BAG 1,000 ML IV SCH ×2 (13:49→20:11)
[2020-01-15 15:15] LABS: Influenza A Molecular Negative (Negative); Influenza B Molecular Negative (Negative)
[2020-01-15 15:45] LABS: HIV 4th Generation Nonreactive (Nonreactive)
[2020-01-15] MEDS ORDERED: Piperacillin/Tazobac ADVAN 3.375 GM in NS 0.9% 100 ml BAG 100 ML IV ONE (17:00)
[2020-01-15] MEDS ORDERED: Zosyn per Pharmacy NOTE FOLLOW UP SCH (17:00)
[2020-01-15] MEDS: Fluticasone NASAL SPRAY 50MCG 16 gm SPRAY BTL BOTH NARES PRN ×2 (17:30→20:11)
[2020-01-15] MEDS: ZOSYN 3.375 GM Q8H per EXTENDED INFUSION IV SCH (20:18)
[2020-01-15] MEDS: Lidocaine Patch REMOVE PATCH PATCH OFF SCH (22:28)
[2020-01-16] MEDS: ZOSYN 3.375 GM Q8H per EXTENDED INFUSION IV SCH ×3 (04:41→20:37)
[2020-01-16] MEDS: Heparin 5000 UNITS/ML 1 mL VIAL SUBCUT SCH ×3 (04:41→20:37)
[2020-01-16] MEDS: Nicotine GUM 2MG FRUIT FLAVOR PO PRN ×4 (04:54→21:48)
[2020-01-16] MEDS: NS 0.9% 1000 ml BAG 1,000 ML IV SCH ×2 (08:57→17:30)
[2020-01-16] MEDS: Lidocaine PATCH 5% PATCH TRANSDERM SCH (09:02)
[2020-01-16] MEDS ORDERED: Vancomycin Trough Check NOTE FOLLOW UP ONE (10:30)
[2020-01-16] MEDS: Remdesivir 5 MG/ML LIQ IV Vial 100 MG in NS 0.9% 250 ml 230 ML IV SCH (13:02)
[2020-01-16] MEDS ORDERED: NS 0.9% 1000 ml BAG 1,000 ML IV ONE (13:07)
[2020-01-16] MEDS: Lidocaine Patch REMOVE PATCH PATCH OFF SCH (19:36)
[2020-01-17] MEDS: Nicotine GUM 2MG FRUIT FLAVOR PO PRN ×3 (02:19→14:49)
[2020-01-17] MEDS: NS 0.9% 1000 ml BAG 1,000 ML IV SCH ×2 (02:20→13:15)
[2020-01-17] MEDS: ZOSYN 3.375 GM Q8H per EXTENDED INFUSION IV SCH ×2 (05:13→15:03)
[2020-01-17] MEDS: Heparin 5000 UNITS/ML 1 mL VIAL SUBCUT SCH ×2 (05:42→14:52)
[2020-01-17 06:50] LABS: Hematocrit 41 % (42-52); Hemoglobin 13.4 g/dL (14.0-18.0); Mean Corpuscular HGB Conc 33 g/dL (31-36); Mean Corpuscular Hemoglobin 30 pg (27-31); Mean Corpuscular Volume 92 fL (80-94); Platelet Count 273 10^3/uL (150-450); Red Cell Distribution Width 15 % (10-15); White Blood Count 11.7 10^3/uL (3.5-10.8)
[2020-01-17 07:01] LABS: Albumin 3.2 g/dL (3.2-5.2); BUN/Creatinine Ratio 20.6 (8-20); Calcium 8.5 mg/dL (8.6-10.3); EGFR African American 95.9 (>60); EGFR Non-African American 79.2 (>60); Globulin 3.3 g/dL (2-4); Potassium 3.8 mmol/L (3.5-5.0); Total Bilirubin 0.3 mg/dL (0.2-1.0); Total Protein 6.5 g/dL (6.4-8.9)
[2020-01-17 07:36] LABS: ABS Lymphocytes 2.6 10^3/ul (1.0-4.8); ABS Monocytes 1.2 10^3/ul (0-0.8); ABS Neutrophils 7.8 10^3/ul (1.5-7.7); Lymphocyte % 22.1 %
[2020-01-17] MEDS: Lidocaine PATCH 5% PATCH TRANSDERM SCH (08:48)
[2020-01-17] MEDS: Fluticasone NASAL SPRAY 50MCG 16 gm SPRAY BTL BOTH NARES PRN (08:49)
[2020-01-17] MEDS: Remdesivir 5 MG/ML LIQ IV Vial 100 MG in NS 0.9% 250 ml 230 ML IV SCH (13:14)
[2020-01-17 13:20] VITALS: BP 168/84
== END 2020-01-17 17:00 | disposition home or self-care (01) ==
LOC: ED 02:13 → ICU 06:16 → MED 01-12 15:23 → MEDTELE 01-13 17:53 → MED 01-15 13:35
PROVIDERS: ADMIT Internal Medicine; ATTEND Pediatrics